=== PATIENT | male | born 1955 | race Caucasian/White ===

== ENCOUNTER 2018-04-30 15:08 | Inpatient (IN) | payer OTHER, MEDICAID ==
[~2018-04-30] VITALS: Ht 167.6 cm; Wt 70.3 kg
[2018-04-30 15:16] VITALS: BP 135/68
--- NOTE | 2018-04-30 15:30 | NUR ---
PATIENT BIBA TO BED 3.
--- NOTE | 2018-04-30 15:30 | NUR ---
PT. BIB ALS FROM [facility] DUE TO FACILITY STATING " ALOC AND HIGH BLOOD SUGAR". PT. ARRIVED RR EVEN AND UNLABORED. AWAKE AND ALERT , MALAWIAN SPEAKING AND ABLE TO SPEAK IN FULL AND COMPLETE SENTENCES. SKIN WARM AND DRY TO TOUCH. DENIES N/V/D. DENIES FEELING DIZZY. PT IS COOPERATIVE AND CALM. 4/10 PAIN IN L SHOULDER DUE TO " I FELL ABOUT 2 DAYS AGO AND THATS WHY IT HURTS". DENIES HITTING HEAD. PT ARRIVED WITH IV TO R HAND ESTABLISHED EN ROUTE. ER MD NOTIFIED. SAFETY PRECAUTIONS IMPLEMENTED.WILL CONTINUE TO MONITOR.
[2018-04-30] MEDS ORDERED: SEVE800T6 PO (15:47)
[2018-04-30] MEDS ORDERED: CARV12.5 PO (15:47)
[2018-04-30] MEDS ORDERED: VITD1000 PO (15:47)
[2018-04-30] MEDS ORDERED: GLU1I IM (15:47)
[2018-04-30] MEDS ORDERED: SYN.1 PO (15:47)
[2018-04-30] MEDS ORDERED: PANT40EC PO (15:47)
[2018-04-30] MEDS ORDERED: SENN-72 PO (15:47)
[2018-04-30] MEDS ORDERED: MIRABULK PO (15:47)
[2018-04-30] MEDS ORDERED: PHO667 PO (15:47)
[2018-04-30] MEDS ORDERED: AMLO5TAB PO (15:47)
[2018-04-30] MEDS ORDERED: SLIDE SUBQ (15:47)
[2018-04-30] MEDS ORDERED: DEXT38GE PO (15:47)
[2018-04-30] MEDS ORDERED: INSU100S10 SC (15:47)
[2018-04-30] MEDS ORDERED: BISA5TAB79 PO (15:47)
[2018-04-30] MEDS ORDERED: ASPI81EC98 PO (15:47)
[2018-04-30] MEDS ORDERED: CLON0.1T15 PO (15:47)
[2018-04-30] MEDS ORDERED: DOCU-299 PO (15:47)
[2018-04-30] MEDS ORDERED: MECL-272 PO (15:47)
[2018-04-30] MEDS ORDERED: LON2.5 PO (15:47)
[2018-04-30] MEDS ORDERED: MIRT15TA PO (15:47)
[2018-04-30] MEDS ORDERED: ATOR40TA PO (15:47)
[2018-04-30] MEDS ORDERED: VITA1TAB44 PO (15:47)
[2018-04-30] MEDS ORDERED: KEP500 PO (15:47)
[2018-04-30] MEDS ORDERED: CYAN1TAB82 PO (15:47)
[2018-04-30] MEDS ORDERED: NACL 0.9% 500 ML IV SCH (16:08)
--- NOTE | 2018-04-30 16:15 | NUR ---
XRAY AT BEDSIDE AT THIS TIME.
--- NOTE | 2018-04-30 16:58 | NUR ---
PT. UNABLE TO PROVIDE URINE AT THIS TIME. ER MD DEL CID NOTIFIED.
[2018-04-30] MEDS ORDERED: INSULIN REGULAR, HUMAN 100 UNIT/ML VIAL IVP ONE (17:05)
[2018-04-30 17:34] LABS: BASOPHILS % (AUTO) 0.7 % (0.0-2.0); EOSINOPHILS # (AUTO) 0.3 K/uL (0-0.4); EOSINOPHILS % (AUTO) 5.7 % (0.0-4.0); HEMATOCRIT 23.8 % (36-52); HEMOGLOBIN 7.5 g/dL (12.0-18.0); LYMPHOCYTES % (AUTO) 22.3 % (20.5-51.1); MEAN CORPUSCULAR HEMOGLOBIN 29 pg (27-31); MEAN CORPUSCULAR HGB CONC 32 g/dL (33-37); MEAN CORPUSCULAR VOLUME 92.6 fL (80-94); MONOCYTES # (AUTO) 0.5 K/uL (0.8-1.0); NEUTROPHILS # (AUTO) 2.7 K/uL (1.8-7.7); NEUTROPHILS % (AUTO) 60.3 % (42.2-75.2); PLATELET COUNT (AUTO) 116 K/uL (140-450); RED BLOOD CELL COUNT(AUTO) 2.57 MIL/uL (4.20-6.10); RED CELL DISTRIBUTION WIDTH 16.1 % (11.6-13.7); WHITE BLOOD COUNT (AUTO) 4.4 K/uL (4.8-10.8)
[2018-04-30 17:46] LABS: APPEARANCE,URINE CLEAR (CLEAR); BILIRUBIN,URINE NEGATIVE (NEGATIVE); BLOOD, URINE TRACE-I (NEGATIVE); COLOR,URINE YELLOW (YELLOW); LEUKOCYTE ESTERASE ,URINE NEGATIVE (NEGATIVE); NITRITE, URINE NEGATIVE (NEGATIVE); PH,URINE 8.5 (5.0-9.0); UGLUCOSE 3+ (NEGATIVE)
[2018-04-30 17:59] LABS: ACETONE, SERUM NEGATIVE (NEGATIVE)
--- NOTE | 2018-04-30 18:00 | NUR ---
PT. RESTING COMFORTABLY IN BED, RR EVEN AND UNLABORED. WILL CONTINUE TO MONITOR
[2018-04-30 18:17] LABS: CREATINE KINASE MB 0.7 ng/mL (0-3.6)
[2018-04-30 18:19] LABS: RBC,URINE 0-5 (RARE) /HPF (0-5); WBC,URINE 0-5 (RARE) /HPF (0-5)
[2018-04-30 18:22] LABS: ANION GAP 7.8 (8-16); CARBON DIOXIDE 31.9 mmol/L (21-32); POTASSIUM 4.7 mmol/L (3.5-5.1)
[2018-04-30 18:24] LABS: ALBUMIN 2.9 g/dL (3.4-5.0); TOTAL BILIRUBIN 0.4 mg/dL (0.0-1.0)
[2018-04-30 18:26] LABS: CREATININE 8.3 mg/dL (0.7-1.3)
[2018-04-30] MEDS ORDERED: ACETAMINOPHEN 325 MG TAB PO PRN (18:30)
[2018-04-30] MEDS ORDERED: ONDANSETRON 4 MG/2 ML VIAL IVP PRN (18:30)
[2018-04-30] MEDS ORDERED: HYDROcodone/APAP 7.5/325 MG 1 TAB PO PRN (18:30)
[2018-04-30] MEDS ORDERED: INSULIN LISPRO SLIDING SCALE 100 UNITS/ML VIAL SUBQ PRN (18:35)
[2018-04-30] MEDS ORDERED: DEXTROSE 50% 50 ML SYR IVP PRN (18:35)
[2018-04-30 18:44] LABS: MAGNESIUM 1.8 mg/dL (1.8-2.4)
[2018-04-30 18:45] LABS: AMYLASE 30 U/L (25-115); LIPASE 302 U/L (73-393)
[2018-04-30 18:54] LABS: BARBITURATE, URINE NEG. ng/ml (NEG <=200); BENZODIAZEPINE, URINE NEG. ng/mL (NEG <=200); CANNABINOID, URINE NEG. ng/mL (NEG <=50); COCAINE, URINE NEG. ng/mL (NEG <=300); OPIATE, URINE NEG. ng/mL (NEG <=2000); PHENCYCLIDINE SCREEN,URINE NEG. ng/mL (NEG <=25)
[2018-04-30 19:06] LABS: CHOL/HDL RATIO 4.8 (1-4.5); FREE T4 (FREE THYROXINE) 1.03 ng/dL (0.76-1.46); THYROID STIMULATING HORMONE 3.76 uIU/mL (0.34-3.74)
--- NOTE | 2018-04-30 19:11 | NUR ---
Patient will be admitted to care of DR. PITT . Admited to TELE . Will go to room 117. Belongings list completed. Report to DANIEL RAMOS .
[2018-04-30 19:15] LABS: URIC ACID 3.6 mg/dL (2.6-7.2)
--- NOTE | 2018-04-30 19:15 | NUR ---
RECEIVED FROM ER PER LILY AWAKE AND ALERT. FRENCH SPEAKING MALE PT. COMING FROM [facility] . C/C OF CHANGE OF LOC RT HYPERGLYCEMIA. DX. UNCONTROLLED DM. ESRD. AT PRESENT PT. IS VERY MUCH AWAKE AND ABLE TO FOLLOW COMMANDS. IVF SITE TO RIGHT HAND #22. WITH LEFT UPPER ARM HEMODIALYSIS ACCESS. SKIN INTACT. AFEBRILE. BED ALARM ON. CALL LIGHT WITH IN REACH.
[2018-04-30 19:51] VITALS: BP 144/71
--- NOTE | 2018-04-30 20:35 | NUR ---
GAS PUMPING STATION SUPERVISOR SHARLENE # [id number] / OCTAVIANO INTERPRETED PT.S HISTORY IN UPPER SORBIAN . RESIDENT MD PRESENT DURING ASSESSMENT OF PT.
[2018-04-30] MEDS ORDERED: MECLIZINE 25 MG TAB PO PRN (20:55)
[2018-04-30] MEDS ORDERED: cloNIDine 0.1 MG TAB PO PRN (20:55)
[2018-04-30] MEDS ORDERED: BISACODYL 5 MG TABEC PO PRN (20:55)
[2018-04-30] MEDS ORDERED: SENNA 8.6 MG TAB PO PRN (20:55)
[2018-04-30] MEDS: BLOOD GLUCOSE MONITORING 1 DEV DEV FS SCH (21:03)
[2018-04-30] MEDS: DOCUSATE SODIUM 100 MG GELCAP PO SCH (21:06)
--- NOTE | 2018-04-30 21:12 | NUR ---
PT. NOTED ABLE TO UNDERSTAND A LITTLE BIT IN [place]. STATES THAT HE IS HUNGRY. PROVIDED WITH SANDWICH RT BLOOD SUGAR WNL. 123 MG/DL PER FINGERSTICK. RESIDENT MD AWARE. SIDERAILS OF BED PADDED RT SEIZURE PRECAUTION. CALL LIGHT EXPLAINED AND WITH IN REACH.
--- NOTE | 2018-04-30 21:15 | NUR ---
PT. AT THIS TIME COMPLAINED THAT HE HAS PAIN 4/10 TO LEFT SHOULDER FROM STATUS POST FALL FROM OUTSIDE. REQUESTING FOR MEDICATION FOR PAIN. WILL MEDICATE REQUESTED.
[2018-04-30] MEDS: ATORVASTATIN 20 MG TAB PO SCH (23:02)
[2018-04-30] MEDS: amLODIPine 5 MG TAB PO SCH (23:02)
[2018-04-30] MEDS: MIRTAZAPINE 15 MG TAB PO SCH (23:02)
[2018-04-30] MEDS: levETIRAcetam 500 MG TAB PO SCH (23:02)
[2018-04-30] MEDS: CARVEDILOL 12.5 MG TAB PO SCH (23:03)
[2018-05-01 00:23] VITALS: BP 116/53
--- NOTE | 2018-05-01 00:25 | NUR ---
SLEEPING BUT WAKES UP EASILY WHEN TOUCHED. NO SOB. DENIES PAIN AT THIS TIME. MEDICATED WITH NORCO EARLIER IN THE SHIFT FOR COMPLAINT OF LEFT SHOULDER PAIN FROM S/P FALL IN ANOTHER FACILITY. VERBALIZES WELL . ANSWERS QUESTIONS IN ITALIAN. TELEMETRY MONITORING.
--- NOTE | 2018-05-01 01:43 | NUR ---
PT. WOKE UP AND ASKED FOR URINAL. PROVIDED WITH ONE. ABLE TO USE URINAL. ABLE TO USE CALL LIGHT FOR HELP. VERBALIZES WELL.
--- NOTE | 2018-05-01 04:10 | NUR ---
PT. BEEN SLEEPING WELL. NO COMPLAINTS DONE. TELEMETRY MONITORING. CALL LIGHT WITH IN REACH.
[2018-05-01 05:17] VITALS: BP 104/52
[2018-05-01] MEDS: BLOOD GLUCOSE MONITORING 1 DEV DEV FS SCH ×4 (05:32→21:00)
[2018-05-01] MEDS: PANTOPRAZOLE 40 MG TABEC PO SCH (05:36)
[2018-05-01] MEDS: LEVOTHYROXINE 0.1 MG TAB PO SCH (05:36)
[2018-05-01] MEDS: INSULIN LISPRO SLIDING SCALE 100 UNITS/ML VIAL SUBQ PRN ×2 (05:42→21:03)
[2018-05-01] MEDS: INSULIN NPH HUMAN ISOPHANE 100 UNIT/ML VIAL SUBQ SCH (05:42)
--- NOTE | 2018-05-01 05:56 | NUR ---
BLOOD SUGAR CHECK PER FINGERSTICK 238 MG/DL. INSULIN COVERAGE ORDERED ADMINISTERED. PT. ASKING FOR FOOD AGAIN. STATING VERY HUNGRY , PROVIDED WITH 1/2 OF SANDWICH AND A 120 ML OF MILK. EDUCATED RE: DIET , HYPERGLYCEMIA AND HYPOGLYCEMIA EPISODES, CAUSE AND NEEDS . "OK" REJI "I AM HUNGRY, MUCHO HAMBRE" PER PT.
--- NOTE | 2018-05-01 07:25 | NUR ---
PATIENT AWAKE, ALERT. RESPIRATION EVEN, UNLABOR ON ROOM AIR. SKIN DRY AND WARM. IV PATENT AND INTACT. DENIED PAIN AT THIS TIME. AV SHUNT ON LEFT ARM WITH THRILL AND BRUIT PRESENT. PLAN OF CARE WAS DISCUSSED WITH PATIENT. BED AT LOW POSITION, SIDE RAILS UP. CALL LIGHT WITHIN REACH.
[2018-05-01 07:49] LABS: MAGNESIUM 1.7 mg/dL (1.8-2.4); PHOSPHORUS 4.6 mg/dL (2.5-4.9)
[2018-05-01 07:49] LABS: BASOPHILS # (AUTO) 0.1 K/uL (0.00-0.22); BASOPHILS % (AUTO) 0.9 % (0.0-2.0); EOSINOPHILS # (AUTO) 0.5 K/uL (0-0.4); EOSINOPHILS % (AUTO) 7.7 % (0.0-4.0); HEMATOCRIT 23.1 % (36-52); HEMOGLOBIN 7.4 g/dL (12.0-18.0); LYMPHOCYTES # (AUTO) 1.4 K/uL (2.0-11.5); LYMPHOCYTES % (AUTO) 21.7 % (20.5-51.1); MEAN CORPUSCULAR HEMOGLOBIN 30 pg (27-31); MEAN CORPUSCULAR HGB CONC 32 g/dL (33-37); MEAN CORPUSCULAR VOLUME 92.5 fL (80-94); MONOCYTES # (AUTO) 0.4 K/uL (0.8-1.0); MONOCYTES % (AUTO) 6.5 % (1.7-9.3); NEUTROPHILS % (AUTO) 63.2 % (42.2-75.2); PLATELET COUNT (AUTO) 130 K/uL (140-450); RED CELL DISTRIBUTION WIDTH 15.7 % (11.6-13.7); WHITE BLOOD COUNT (AUTO) 6.4 K/uL (4.8-10.8)
[2018-05-01 07:55] LABS: ANION GAP 11.4 (8-16); POTASSIUM 4.4 mmol/L (3.5-5.1)
[2018-05-01 07:56] LABS: CREATININE 9.3 mg/dL (0.7-1.3)
[2018-05-01 08:00] VITALS: BP 109/57
[2018-05-01] MEDS: VIT-B COMP/VIT-C/FOLIC ACID 1 TAB PO SCH (08:10)
[2018-05-01] MEDS: POLYETHYLENE GLYCOL 17 GM/PKT PO SCH (08:10)
[2018-05-01] MEDS: CYANOCOBALAMIN 100 MCG TAB PO SCH (08:10)
[2018-05-01] MEDS: CHOLECALCIFEROL 1,000 IU TAB PO SCH (08:11)
[2018-05-01] MEDS: CARVEDILOL 12.5 MG TAB PO SCH ×2 (08:11→20:16)
[2018-05-01] MEDS: levETIRAcetam 500 MG TAB PO SCH ×2 (08:11→20:16)
[2018-05-01] MEDS: SEVELAMER CARBONATE 800 MG TAB PO SCH ×3 (08:11→17:33)
[2018-05-01] MEDS: CALCIUM ACETATE 667 MG TAB PO SCH ×3 (08:12→17:33)
[2018-05-01] MEDS: DOCUSATE SODIUM 100 MG GELCAP PO SCH ×2 (08:12→20:16)
[2018-05-01] MEDS: ECOTRIN 81 MG TABEC PO SCH (08:12)
[2018-05-01] MEDS: MINOXIDIL 2.5 MG TAB PO SCH (08:12)
[2018-05-01] MEDS: amLODIPine 5 MG TAB PO SCH ×2 (08:12→20:16)
--- NOTE | 2018-05-01 08:13 | NUR ---
PATIENT HAS BEEN SCREENED AND CATEGORIZED MODERATE NUTRITION RISK. PATIENT WILL BE SEEN WITHIN 3-5 DAYS OF ADMISSION. 05/03/18 05/05/[address]
--- NOTE | 2018-05-01 08:30 | NUR ---
DTI WAS FOUND ON LEFT HEEL. PATIENT STATED HE HAS HAD IT FOR 6 MONTHS AND ALREADY SEEN DOCTOR. WOUND PICTURE WAS TAKEN. LEFT HEEL WAS PLACED OFF PRESSURE. WILL NOTIFY
--- NOTE | 2018-05-01 10:00 | NUR ---
PATIENT WAS SLEEPING COMFORTABLY. RESPIRATION EVEN, UNLABOR ON ROOM AIR. NO DISTRESS NOTED AT THIS TIME
--- NOTE | 2018-05-01 10:29 | NUR ---
John FERRELL WAS MADE AWARE OF PATIENT'S MAG 1.7. WILL MEDICATE PER ORDER
[2018-05-01] MEDS ORDERED: HYDRAGUARD CREAM TP PRN (10:30)
[2018-05-01] MEDS ORDERED: ALBUTEROL SULFATE/IPRATROPIU 3 ML SOL IH PRN (10:40)
[2018-05-01] MEDS ORDERED: MECLIZINE 25 MG TAB PO PRN (10:45)
[2018-05-01] MEDS ORDERED: SENNA 8.6 MG TAB PO PRN (10:45)
[2018-05-01] MEDS ORDERED: cloNIDine 0.1 MG TAB PO PRN (10:50)
--- NOTE | 2018-05-01 11:45 | NUR ---
PATIENT AWAKE, ALERT. RESPIRATION EVEN, UNLABOR ON ROOM AIR. NO DISTRESS NOTED AT THIS TIME. VS IS STABLE. DRESSING WAS APPLIED ON WOUND. CALL LIGHT WITHIN REACH
[2018-05-01 12:00] VITALS: BP 119/54
[2018-05-01] MEDS ORDERED: MAG SULF 2000 MG/WATER PREMIX 50 ML IV SCH (12:00)
[2018-05-01] MEDS: HYDRAGUARD CREAM TP SCH (12:05)
--- NOTE | 2018-05-01 13:00 | NUR ---
HEMODIALYSIS WAS OBTAINED AT BEDSIDE. PATIENT VERBALIZED UNDERSTANDING.
--- NOTE | 2018-05-01 14:30 | NUR ---
PATIENT WAS SLEEPING COMFORTABLY. RESPIRATION EVEN, UNLABOR ON ROOM AIR. NO DISTRESS NOTED AT THIS TIME Addendum: 05/01/18 at 1625 by Keisha Hubbard RN BACK WOUND PICTURE WAS TAKEN. WOUND DRESSING WAS APPLIED.
--- NOTE | 2018-05-01 14:58 | NUR ---
WOUND CARE EVALUATION NOTE: REASON FOR EVALUATION: LEFT SCAPULAR AND LEFT HEEL WOUND SKIN ASSESSMENT DONE WITH THIS 63 Y/O MALE PT ADMITTED FROM [facility] TO [facility] WITH INITIAL DX OF HIGH BLOOD GLUCOSE. PAST MEDICAL HX INCLUDES HTN, DM AND ESRD WITH HEMODIALYSIS. PT. STATES S/P FALL 3 DAYS AGO AT SNF. ALL ABOVE INFORMATION OBTAINED FROM ADMISSION H&P. AND PT. PT IS AAX3. LABS ARE WBC 6.4, H/H 7.4/23.1, GLUCOSE 211 AND ALBUMIN 2.9. PT IS AWAKE. PT. REFUSED TO BE CHECKED ON PERINEUM AREA INCLUDING BUTTOCKS AND SACRAL AREAS. SKIN IS WARM AND DRY, BLE NO HAIR GROWTH. BILATERAL DORSAL PEDAL PULSES PRESENT AND NORMAL. CAPILLARY REFILLED < 2 SEC. X 10 TOES. PLAN OF CARE DISCUSSED WITH PRIMARY RN. INTEGUMENTARY: -LEFT UPPER ARM AV SHUNT WITH DRESSING DCI -ABRASION/ FRICTION CLOSE WOUND TO LEFT SCAPULAR 4X10CM WOUND BE, LIGHT YELLOW, WITH JAMEE WOUND SKIN INTACT WITH SURROUNDING REDNESS AREA 6X11CM -RIGHT HEEL OLD HEALED SCAR -LEFT MEDIAL HEEL SUSPECTED DTI 2X2 CM, SKIN INTACT WITH LIGHT PURPLE IN COLOR RECOMMENDATIONS: --KEEP SKIN DRY AND CLEAN AT ALL TIMES -APPLY HYDRAGUARD TO LEFT SCAPULAR BID AND LEAVE IT OPEN TO AIR -APPLY SKIN PREP TO LEFT MEDIAL HEEL BID AND LEAVE IT OPEN TO AIR -APPLY HEEL RAISER TO LEFT HEEL AT ALL TIMES -OFFLOAD BILATERAL HEELS BY PLACING PILLOWS UNDER CALVES UNLESS OTHERWISE CONTRAINDICATED -PRESSURE REDISTRIBUTION SURFACE THERAPY -TURN AND REPOSITION Q2H, OFFLOAD LEFT SCAPULAR BY TURNING RIGHT AND LEFT -CONTINUE TO FOLLOW RD RECOMMENDATIONS ALL ABOVE RECOMMENDATIONS DISCUSSED WITH PRIMARY RN WILL FOLLOW UP PT Q7-10 DAYS. PLEASE CONTACT WOUND CARE NURSE FOR ANY QUESTION AND CHANGE OF WOUND CONDITION
--- NOTE | 2018-05-01 15:10 | NUR ---
CM NOTE RECEIVED CALL FROM SHELLY MENDIETA OF ADMITTING WHO STATED THAT REVIEWS SHOULD BE SENT TO [facility] [phone], SHAMIR ALVARENGA PH# [phone]
[2018-05-01 16:00] VITALS: BP 109/56
--- NOTE | 2018-05-01 16:15 | NUR ---
PATIENT WAS SLEEPING COMFORTABLY. RESPIRATION EVEN, UNLABOR ON ROOM AIR. DENIED PAIN, SOB AT THIS TIME. VS IS STABLE. NO DISTRESS NOTED. DIALYSIS IS AT BEDSIDE. CALL LIGHT WITHIN REACH.
[2018-05-01] MEDS: FERROUS SULFATE 325 MG TABEC PO SCH (17:33)
--- NOTE | 2018-05-01 18:15 | NUR ---
PATIENT AWAKE, ALERT. RESPIRATION EVEN, UNLABOR ON ROOM AIR. IV PATENT AND INTACT. NO DISTRESS NOTED AT THIS TIME. FAMILY AT BEDSIDE. CALL LIGHT WITHIN REACH
--- NOTE | 2018-05-01 19:21 | NUR ---
ENDORSEMENT GIVEN TO CERTIFIED CODER NURSE. PATIENT IS STABLE AT THIS TIME
--- NOTE | 2018-05-01 19:25 | NUR ---
RECEIVED PATIENT AWAKE RESTING ON BED. DISCUSSED PLAN OF CARE AND VERBALIZED UNDERSTANDING. FALL PRECAUTION APPLIED. CALL LIGHT WITHIN REACH.
[2018-05-01 20:00] VITALS: BP 106/50
[2018-05-01] MEDS ORDERED: EPOETIN ALFA 10,000 UNITS/ML VIAL IV SCH (20:00)
[2018-05-01] MEDS: MIRTAZAPINE 15 MG TAB PO SCH (20:16)
[2018-05-01] MEDS: ATORVASTATIN 20 MG TAB PO SCH (20:16)
[2018-05-01] MEDS ORDERED: EPOETIN ALFA 10,000 UNITS/ML VIAL SUBQ SCH (21:00)
--- NOTE | 2018-05-01 21:00 | NUR ---
SCHEDULE MEDICATION GIVEN TOLERATED WELL. BS TAKEN AND RECORDED SLIDING SCALE GIVEN PER PROTOCOL. REPOSITIONED PATIENT IN COMFORTABLE POSITION. NO S/S OF DISTRESS NOTED AT THIS TIME. WILL CONTINUE TO MONITOR.
[2018-05-02] VITALS: BP 112/53
--- NOTE | 2018-05-02 00:05 | NUR ---
V/S TAKEN AND RECORDED. PATIENT PLACE IN COMFORTABLE POSITION. NO S/S OF DISTRESS NOTED. CALL LIGHT WITHIN REACH. WILL CONTINUE TO MONITOR.
[2018-05-02] MEDS: HYDRAGUARD CREAM TP SCH ×2 (01:08→12:34)
--- NOTE | 2018-05-02 02:30 | NUR ---
CHECKED PATIENT ASLEEP COMFORTABLY ON BED. NO SEIZURE NOTED AT THIS. FALL PRECAUTION IMPLEMENTED. CALL LIGHT WITHIN REACH. NO S/S OF DISTRESS NOTED AT THIS TIME. WILL CONTINUE TO MONITOR.
[2018-05-02 04:00] VITALS: BP 119/62
[2018-05-02] MEDS: INSULIN NPH HUMAN ISOPHANE 100 UNIT/ML VIAL SUBQ SCH (05:32)
[2018-05-02] MEDS: LEVOTHYROXINE 0.1 MG TAB PO SCH (05:46)
[2018-05-02] MEDS: PANTOPRAZOLE 40 MG TABEC PO SCH (05:46)
[2018-05-02] MEDS: INSULIN LISPRO SLIDING SCALE 100 UNITS/ML VIAL SUBQ PRN ×2 (06:35→12:37)
[2018-05-02 06:44] LABS: BASOPHILS # (AUTO) 0.1 K/uL (0.00-0.22); BASOPHILS % (AUTO) 0.8 % (0.0-2.0); EOSINOPHILS # (AUTO) 0.5 K/uL (0-0.4); EOSINOPHILS % (AUTO) 7.1 % (0.0-4.0); HEMATOCRIT 26.3 % (36-52); HEMOGLOBIN 8.4 g/dL (12.0-18.0); LYMPHOCYTES # (AUTO) 1.5 K/uL (2.0-11.5); LYMPHOCYTES % (AUTO) 23.6 % (20.5-51.1); MEAN CORPUSCULAR HEMOGLOBIN 29 pg (27-31); MEAN CORPUSCULAR HGB CONC 32 g/dL (33-37); MEAN CORPUSCULAR VOLUME 92.5 fL (80-94); MONOCYTES # (AUTO) 0.4 K/uL (0.8-1.0); MONOCYTES % (AUTO) 6.4 % (1.7-9.3); NEUTROPHILS % (AUTO) 62.1 % (42.2-75.2); PLATELET COUNT (AUTO) 146 K/uL (140-450); RED BLOOD CELL COUNT(AUTO) 2.85 MIL/uL (4.20-6.10); WHITE BLOOD COUNT (AUTO) 6.4 K/uL (4.8-10.8)
[2018-05-02 06:53] LABS: MAGNESIUM 1.8 mg/dL (1.8-2.4); PHOSPHORUS 4.3 mg/dL (2.5-4.9)
[2018-05-02] MEDS: BLOOD GLUCOSE MONITORING 1 DEV DEV FS SCH ×3 (06:55→16:53)
[2018-05-02 06:56] LABS: ANION GAP 7.8 (8-16); CARBON DIOXIDE 31.5 mmol/L (21-32); POTASSIUM 4.3 mmol/L (3.5-5.1)
--- NOTE | 2018-05-02 07:10 | NUR ---
GAVE REPORT TO AM SHIFT RN AT BEDSIDE FOR CONTINUITY OF CARE. PATIENT IN STABLE CONDITION.
--- NOTE | 2018-05-02 07:20 | NUR ---
PATIENT WAS SLEEPING COMFORTABLY. RESPIRATION EVEN, UNLABOR ON ROOM AIR. SKIN DRY AND WARM. IV PATENT AND INTACT. DENIED PAIN, SOB AT THIS TIME. PLAN OF CARE WAS DISCUSSED WITH PATIENT, BED AT LOW POSITION, SIDE RAILS UP. CALL LIGHT WITHIN REACH
[2018-05-02 07:41] LABS: CREATININE 6.7 mg/dL (0.7-1.3)
[2018-05-02 08:00] VITALS: BP 100/57
[2018-05-02] MEDS ORDERED: LANTUS SC (08:10)
[2018-05-02] MEDS ORDERED: SENN-72 PO (08:10)
[2018-05-02] MEDS ORDERED: MECL-272 PO (08:10)
[2018-05-02] MEDS ORDERED: CLON0.1T15 PO (08:10)
[2018-05-02] MEDS: SEVELAMER CARBONATE 800 MG TAB PO SCH ×2 (08:25→12:33)
[2018-05-02] MEDS: MINOXIDIL 2.5 MG TAB PO SCH (08:26)
[2018-05-02] MEDS: CHOLECALCIFEROL 1,000 IU TAB PO SCH (08:26)
[2018-05-02] MEDS: VIT-B COMP/VIT-C/FOLIC ACID 1 TAB PO SCH (08:26)
[2018-05-02] MEDS: POLYETHYLENE GLYCOL 17 GM/PKT PO SCH (08:26)
[2018-05-02] MEDS: CYANOCOBALAMIN 100 MCG TAB PO SCH (08:26)
[2018-05-02] MEDS: amLODIPine 5 MG TAB PO SCH (08:27)
[2018-05-02] MEDS: CALCIUM ACETATE 667 MG TAB PO SCH ×2 (08:27→12:33)
[2018-05-02] MEDS: levETIRAcetam 500 MG TAB PO SCH (08:27)
[2018-05-02] MEDS: ECOTRIN 81 MG TABEC PO SCH (08:27)
[2018-05-02] MEDS: CARVEDILOL 12.5 MG TAB PO SCH (08:27)
[2018-05-02] MEDS: DOCUSATE SODIUM 100 MG GELCAP PO SCH (08:27)
[2018-05-02] MEDS: FERROUS SULFATE 325 MG TABEC PO SCH (08:27)
--- NOTE | 2018-05-02 10:07 | NUR ---
PATIENT WAS SLEEPING COMFORTABLY. RESPIRATION EVEN, UNLABOR ON ROOM AIR. NO DISTRESS NOTED AT THIS TIME
[2018-05-02] MEDS ORDERED: INFLUENZA VIRUS VACCINE QUAD 0.5 ML SYR IMVAC SCH (10:35)
--- NOTE | 2018-05-02 11:00 | NUR ---
DISCHARGE INSTRUCTION AND PRESCRIPTION WERE GIVEN AND EXPLAINED TO THE PATIENT VIA PRICE ECONOMIST [id number]. PATIENT VERBALIZED UNDERSTANDING. HIGH SCHOOL CHEMISTRY TEACHER WAS REMOVED. CALL LIGHT WITHIN REACH
--- NOTE | 2018-05-02 11:30 | NUR ---
TALKED TO DR GUERRERO REGARDING PATIENT'S DISCHARGE WITH DIALYSIS. PATIENT CAN GET DIALYSIS ON TUESDAY AND TUESDAY THIS WEEK, AND GO BACK TO USUAL SCHEDULE AFTER.
--- NOTE | 2018-05-02 11:58 | NUR ---
CM NOTE [facility] ASSIGNED SHAMIR COLETTE PH# [phone] REQUESTED REVIEWS TO BE SENT TO THEIR E-FAX [phone]. CONCURRENT REVIEW AND DC SUMMARY FAXED TO [facility] [phone], SHAMIR ALVARENGA PH# [phone]. PER SAULO SANCHEZ, VINNY FROM [facility] STATED THAT PATIENT'S TRANSPORTATION [facility]OUGH [facility]. PER SHAMIR ALVARENGA OF [facility] PH# [phone], FOR [facility] AUTH# [id number]. PER TRISTEN OF [facility] PH# [phone], PATIENT WILL BE PICKED UP AT 1630 TIME TODAY. SAULO SANCHEZ AWARE.
[2018-05-02 12:00] VITALS: BP 121/65
--- NOTE | 2018-05-02 15:06 | NUR ---
FAY AT [facility] WAS MADE AWARE THAT PATIENT WILL NEED DIALYSIS ON TUESDAY AND TUESDAY THIS WEEK
[2018-05-02 15:19] LABS: FOLIC ACID 16.9 ng/mL (>3.0)
[2018-05-02 16:00] VITALS: BP 108/50
--- NOTE | 2018-05-02 16:00 | NUR ---
PATIENT WAS SLEEPING COMFORTABLY. RESPIRATION EVEN, UNLABOR ON ROOM AIR. DENIED PAIN AT THIS TIME. NO DISTRESS NOTED. IV WAS REMOVED, CATHETER INTACT, NO ACTIVE BLEEDING SEEN. CALL LIGHT WITHIN REACH
--- NOTE | 2018-05-02 16:59 | NUR ---
PATIENT WAS TRANSFERRED OUT BY EMT. REPORT WAS GIVEN AT BEDSIDE. ALL BELONGINGS WERE TAKEN WITH EMT. ID BAND WAS REMOVED. PATIENT IS STABLE AT THIS TIME
[2018-05-03] MEDS ORDERED: EPOETIN ALFA 4,000 UNITS/ML VIAL IV SCH (09:00)
== END 2018-05-02 17:00 | disposition home or self-care (01) | DRG 682 ==
LOC: MED 15:08 → MTU 18:29
PROVIDERS: ADMIT General Practice; ATTEND General Practice
PROC: 5A1D70Z Performance of Urinary Filtration, Intermittent, Less than 6 Hours Per Day (ICD-10-PCS; principal; 2018-05-01)
PROC: 3E0234Z Introduction of Serum, Toxoid and Vaccine into Muscle, Percutaneous Approach (ICD-10-PCS; 2018-05-02)
DX: N17.0 Acute kidney failure with tubular necrosis (principal); E11.00 Type 2 diabetes mellitus with hyperosmolarity without nonketotic hyperglycemic-hyperosmolar coma (NKHHC); R53.2 Functional quadriplegia; E44.0 Moderate protein-calorie malnutrition; J98.11 Atelectasis; N18.6 End stage renal disease; E11.65 Type 2 diabetes mellitus with hyperglycemia; I10 Essential (primary) hypertension; K21.9 Gastro-esophageal reflux disease without esophagitis; K59.09 Other constipation; D69.6 Thrombocytopenia, unspecified; S99.922A Unspecified injury of left foot, initial encounter; E11.51 Type 2 diabetes mellitus with diabetic peripheral angiopathy without gangrene; E11.649 Type 2 diabetes mellitus with hypoglycemia without coma; F32.9 Major depressive disorder, single episode, unspecified; D63.8 Anemia in other chronic diseases classified elsewhere; E78.5 Hyperlipidemia, unspecified; E03.9 Hypothyroidism, unspecified; G40.909 Epilepsy, unspecified, not intractable, without status epilepticus; X58.XXXA Exposure to other specified factors, initial encounter; Z68.25 Body mass index [BMI] 25.0-25.9, adult; Z99.2 Dependence on renal dialysis; Y93.89 Activity, other specified; Y92.89 Other specified places as the place of occurrence of the external cause; Y99.8 Other external cause status; Z23 Encounter for immunization; E83.42 Hypomagnesemia
CPT/HCPCS: 36415; 36600; 71045; 80048; 80053; 80305; 81001; 82009; 82150; 82550; 82553; 82607; 82728; 82746; 82803; 82948; 83036; 83540; 83605; 83690; 83735; 83874; 83880; 84100; 84134; 84439; 84443; 84484; 84550; 85025; 85045; 85610; 85730; 87040; 87081; 87086; 90658; 93005; 93925; 93970; 96374; 97530; 99285; J0885; J1815; J3475; Q0092

== ENCOUNTER 2018-06-12 11:40 | Inpatient (IN) | payer OTHER, MEDICAID ==
[~2018-06-12] VITALS: Ht 165.1 cm; Wt 72.6 kg
[2018-06-12 11:40] VITALS: BP 171/95
[~2018-06-12 11:40] MED LIST: AMLO5TAB PO; ASPI81EC98 PO; ATOR40TA PO; BISA5TAB79 PO; CARV12.5 PO; CLON0.1T15 PO; CYAN1TAB82 PO; DEXT38GE PO; DOCU-299 PO; GLU1I IM; INSU100S10 SC; KEP500 PO; LANTUS SC; LON2.5 PO; MECL-272 PO; MIRABULK PO; MIRT15TA PO; PANT40EC PO; PHO667 PO; SENN-72 PO; SEVE800T6 PO; SLIDE SUBQ; SYN.1 PO; VITA1TAB44 PO; VITD1000 PO
--- NOTE | 2018-06-12 11:43 | NUR ---
PT BIBA BLS TO BED 8
--- NOTE | 2018-06-12 12:00 | NUR ---
PT BIB EMS FROM [facility] WITH C/O GEN WEAKNESS AND NAUSEA; PER [facility] MISSED DIALYSIS X 3 DAYS BUT PT STATES LAST DIALYSIS WAS LAST TUESDAY; BS 111 PER EMS, CURRENT BS 111; LT UPPER ARM SHUNT HX; HTN, DM, STROKE, ESRD RX; NON COMPLIANT, HUMULIN, REG INSULIN, AMLOPIDINE, CLONIDINE, KEPPRA
[2018-06-12 12:55] LABS: BASOPHILS # (AUTO) 0.1 K/uL (0.00-0.22); EOSINOPHILS # (AUTO) 0.4 K/uL (0-0.4); EOSINOPHILS % (AUTO) 4.8 % (0.0-4.0); HEMATOCRIT 32.9 % (36-52); HEMOGLOBIN 10.2 g/dL (12.0-18.0); LYMPHOCYTES # (AUTO) 1.2 K/uL (2.0-11.5); MEAN CORPUSCULAR HEMOGLOBIN 30 pg (27-31); MEAN CORPUSCULAR HGB CONC 31 g/dL (33-37); MEAN CORPUSCULAR VOLUME 96.1 fL (80-94); MONOCYTES # (AUTO) 0.7 K/uL (0.8-1.0); MONOCYTES % (AUTO) 8.5 % (1.7-9.3); NEUTROPHILS # (AUTO) 5.6 K/uL (1.8-7.7); NEUTROPHILS % (AUTO) 70.7 % (42.2-75.2); PLATELET COUNT (AUTO) 164 K/uL (140-450); RED BLOOD CELL COUNT(AUTO) 3.42 MIL/uL (4.20-6.10); RED CELL DISTRIBUTION WIDTH 16.7 % (11.6-13.7); WHITE BLOOD COUNT (AUTO) 7.9 K/uL (4.8-10.8)
--- NOTE | 2018-06-12 12:59 | NUR ---
XRAY AT BEDSIDE
[2018-06-12 13:38] LABS: ANION GAP 20.5 (8-16); CARBON DIOXIDE 23.6 mmol/L (21-32); POTASSIUM 7.1 mmol/L (3.5-5.1)
[2018-06-12] MEDS ORDERED: INSULIN REGULAR, HUMAN 100 UNIT/ML VIAL IVP ONE (13:40)
[2018-06-12] MEDS ORDERED: SODIUM BICARBONATE 8.4% PFS 50 MEQ/50 ML SYR IVP ONE (13:40)
[2018-06-12] MEDS ORDERED: DEXTROSE 50% 50 ML SYR IVP ONE (13:40)
[2018-06-12] MEDS ORDERED: SODIUM POLYSTYRENE 15 GM/60 ML UDBTL PO ONE (13:40)
[2018-06-12] MEDS ORDERED: CALCIUM GLUCONATE 10% 1000 MG/10 ML VIAL IVP ONE (13:40)
[2018-06-12] MEDS ORDERED: ALBUTEROL SULFATE/IPRATROPIU 3 ML SOL IH ONE (13:40)
[2018-06-12 13:41] LABS: ALBUMIN 3.2 g/dL (3.4-5.0); TOTAL BILIRUBIN 0.5 mg/dL (0.0-1.0)
[2018-06-12] MEDS ORDERED: SODIUM POLYSTYRENE 15 GM/60 ML UDBTL ONE (13:57)
[2018-06-12 14:04] LABS: APPEARANCE,URINE CLEAR (CLEAR); BILIRUBIN,URINE NEGATIVE (NEGATIVE); BLOOD, URINE SMALL (NEGATIVE); COLOR,URINE YELLOW (YELLOW); LEUKOCYTE ESTERASE ,URINE NEGATIVE (NEGATIVE); NITRITE, URINE NEGATIVE (NEGATIVE); PH,URINE 7.5 (5.0-9.0); UGLUCOSE 2+ (NEGATIVE)
--- NOTE | 2018-06-12 14:05 | NUR ---
RT AT BEDSIDE
--- NOTE | 2018-06-12 14:10 | NUR ---
ADMITTING DX: GENRALIZED WEAKNESS AWAKE AND ALERT RESPONSIVE HHN THERAPY GIVEN OREDERED ENCOURAGED PATIENT FOR INTERMITTENT DEEP BREATHING
[2018-06-12 14:35] LABS: RBC,URINE 0-5 (RARE) /HPF (0-5); WBC,URINE NONE SEEN /HPF (0-5)
[2018-06-12] MEDS ORDERED: HYDROcodone/APAP 5/325 MG 1 TAB TAB PO PRN (15:00)
[2018-06-12] MEDS ORDERED: ZOLPIDEM 5 MG TAB PO PRN (15:00)
[2018-06-12] MEDS ORDERED: ONDANSETRON 4 MG/2 ML VIAL IM/IVP PRN (15:00)
[2018-06-12] MEDS ORDERED: LORazepam 2 MG/ML VIAL IM/IVP PRN (15:00)
[2018-06-12] MEDS ORDERED: ACETAMINOPHEN 325 MG TAB PO PRN (15:00)
[2018-06-12] MEDS ORDERED: DOCUSATE SODIUM 100 MG GELCAP PO PRN (15:00)
[2018-06-12 15:29] LABS: BARBITURATE, URINE NEG. ng/ml (NEG <=200); BENZODIAZEPINE, URINE NEG. ng/mL (NEG <=200); COCAINE, URINE NEG. ng/mL (NEG <=300); OPIATE, URINE NEG. ng/mL (NEG <=2000); PHENCYCLIDINE SCREEN,URINE NEG. ng/mL (NEG <=25)
[2018-06-12 15:39] LABS: FREE T4 (FREE THYROXINE) 0.95 ng/dL (0.76-1.46); MAGNESIUM 2.5 mg/dL (1.8-2.4); PHOSPHORUS 4.9 mg/dL (2.5-4.9); THYROID STIMULATING HORMONE 2.54 uIU/mL (0.34-3.74)
[2018-06-12 15:48] LABS: PROTHROMBIN TIME 10.3 secs (10.8-13.4)
--- NOTE | 2018-06-12 15:49 | NUR ---
PT TAKEN TO FLOOR BY DARIUSZ MCINTYRE
[2018-06-12 15:55] VITALS: BP 176/86
--- NOTE | 2018-06-12 15:55 | NUR ---
PATIENT ADMITTED TO THE UNIT FROM ER. PATIENT LETHARGIC BUT AROUSABLE. NO S/S OF DISTRESS NOTED. PT DENIES PAIN. PATIENT IS DIAPHORETIC. PATIENT IS AFEBRILE. SKIN IS INTACT. PATIENT HAS AN AV SHUNT ON THE LEFT ARM. BRUIT AND THRILL NOTED. PATIENT PLACED ON TELE MONITORING. BED LOWERED WITH CALL LIGHT WITHIN REACH. WILL CONTINUE TO MONITOR
--- NOTE | 2018-06-12 16:00 | NUR ---
Patient will be admitted to care of DR. PITT. Admited to TELE. Will go to room 114. Belongings list completed. Report to DANIEL MONK.
[2018-06-12 16:02] LABS: CANNABINOID, URINE NEG. ng/mL (NEG <=50)
[2018-06-12] MEDS ORDERED: LORazepam 0.5 MG TAB PO PRN (17:15)
[2018-06-12] MEDS ORDERED: INSULIN LISPRO SLIDING SCALE 100 UNITS/ML VIAL SUBQ PRN (17:15)
[2018-06-12] MEDS ORDERED: MECLIZINE 25 MG TAB PO PRN (17:15)
[2018-06-12] MEDS ORDERED: DEXTROSE 50% 50 ML SYR IVP PRN (17:15)
[2018-06-12] MEDS ORDERED: BISACODYL 5 MG PO PRN (17:35)
[2018-06-12] MEDS ORDERED: BISACODYL 5 MG TABEC PO PRN (17:40)
[2018-06-12 18:25] VITALS: BP 107/61
--- NOTE | 2018-06-12 18:35 | NUR ---
HEMODIALYSIS IN PROGRESS. PATIENT ASLEEP IN BED. NO S/S OF DISTRESS NOTED
[2018-06-12 19:35] LABS: ANION GAP 17.3 (8-16); CARBON DIOXIDE 25.8 mmol/L (21-32); POTASSIUM 5.1 mmol/L (3.5-5.1)
--- NOTE | 2018-06-12 19:38 | NUR ---
ENDORSED PATIENT TO RECREATION SPECIALIST RN BY THE BEDSIDE. PATIENT IS SLEEPING AND HD IS STILL IN PROCESS. PATIENT DOES NOT APPEAR TO BE IN ANY DISTRESS OR PAIN AT THIS TIME. BED AT THE LOWEST POSITION AND CALL LIGHT WITHIN REACH.
--- NOTE | 2018-06-12 19:40 | NUR ---
RECEIVED PT FROM REGINE SANCHEZ PT ESTONIAN SPEAKER AAOX2 ON HEMODIALYSIS AT THIS TIME HD ACCESS ONLEFT ARM ON TELEMETRY SB INITIAL ASSESSMENT DONE
[2018-06-12 19:57] LABS: CREATININE 12.5 mg/dL (0.7-1.3)
[2018-06-12 20:00] VITALS: BP 107/65
--- NOTE | 2018-06-12 20:30 | NUR ---
HEMODIALYSIS END AT 2030 AND 1.6 LITERS OUT
[2018-06-12] MEDS: CARVEDILOL 12.5 MG TAB PO SCH (21:00)
[2018-06-12] MEDS: NACL 0.9% 1,000 ML IV SCH (21:00)
--- NOTE | 2018-06-12 21:30 | NUR ---
BLOOD SUGAR TEST 122 PT EATING WELL HIS DINNE, OPT REPOSITIONED NOT DISTESS NOTED ON TELMETRY SB
[2018-06-12] MEDS: DOCUSATE SODIUM 100 MG GELCAP PO SCH (21:46)
[2018-06-12] MEDS: ATORVASTATIN 20 MG TAB PO SCH (21:46)
[2018-06-12] MEDS: levETIRAcetam 500 MG TAB PO SCH (21:47)
[2018-06-12] MEDS: MIRTAZAPINE 15 MG TAB PO SCH (21:47)
[2018-06-12] MEDS: amLODIPine 5 MG TAB PO SCH (21:50)
[2018-06-12] MEDS: BLOOD GLUCOSE MONITORING 1 DEV DEV FS SCH (21:58)
[2018-06-13 01:42] VITALS: BP 177/87
[2018-06-13] MEDS: cloNIDine 0.1 MG TAB PO PRN (01:46)
--- NOTE | 2018-06-13 02:41 | NUR ---
PT HAS BEEN MONITORING CLOSE FOR HIGH BP ON TELMETRY SR NOT DISTRESS NOTED AT THIS TIME
[2018-06-13 04:00] VITALS: BP 147/77
--- NOTE | 2018-06-13 06:30 | NUR ---
BLOOD SUGAR TEST 98 PT ON TELEMETRY REMAIN STABLE
[2018-06-13] MEDS: BLOOD GLUCOSE MONITORING 1 DEV DEV FS SCH ×4 (06:33→21:20)
[2018-06-13] MEDS: PANTOPRAZOLE 40 MG TABEC PO SCH (06:35)
[2018-06-13] MEDS: LEVOTHYROXINE 0.1 MG TAB PO SCH (06:36)
[2018-06-13 07:24] LABS: BASOPHILS % (AUTO) 0.8 % (0.0-2.0); EOSINOPHILS # (AUTO) 0.2 K/uL (0-0.4); EOSINOPHILS % (AUTO) 3.8 % (0.0-4.0); HEMATOCRIT 32.4 % (36-52); HEMOGLOBIN 10.4 g/dL (12.0-18.0); LYMPHOCYTES # (AUTO) 1.2 K/uL (2.0-11.5); LYMPHOCYTES % (AUTO) 20.8 % (20.5-51.1); MEAN CORPUSCULAR HEMOGLOBIN 30 pg (27-31); MEAN CORPUSCULAR HGB CONC 32 g/dL (33-37); MEAN CORPUSCULAR VOLUME 94.8 fL (80-94); MONOCYTES # (AUTO) 0.5 K/uL (0.8-1.0); MONOCYTES % (AUTO) 8.8 % (1.7-9.3); NEUTROPHILS # (AUTO) 3.7 K/uL (1.8-7.7); NEUTROPHILS % (AUTO) 65.8 % (42.2-75.2); PLATELET COUNT (AUTO) 153 K/uL (140-450); RED BLOOD CELL COUNT(AUTO) 3.42 MIL/uL (4.20-6.10); RED CELL DISTRIBUTION WIDTH 15.9 % (11.6-13.7); WHITE BLOOD COUNT (AUTO) 5.6 K/uL (4.8-10.8)
--- NOTE | 2018-06-13 07:45 | NUR ---
RECEIVED REPORT FORM SONIA. PATIENT WAS SLEEPING. RESPIRATIONS EVEN AND UNLABORED ON ROOM AIR. SKIN DRY AND WARM. IV PATENT AND INTACT. DENIED PAIN. PLAN OF CARE WAS DISCUSSED WITH PATIENT. BED AT LOW POSITION, SIDE RAILS UP. CALL LIGHT WITHIN REACH. ALL NEEDS MET AT THIS TIME.
[2018-06-13 07:56] LABS: ANION GAP 12.4 (8-16); CARBON DIOXIDE 30.8 mmol/L (21-32); POTASSIUM 4.2 mmol/L (3.5-5.1)
[2018-06-13 08:00] VITALS: BP 159/73
[2018-06-13 08:00] LABS: CREATININE 10.8 mg/dL (0.7-1.3)
[2018-06-13 08:09] LABS: MAGNESIUM 1.9 mg/dL (1.8-2.4); PHOSPHORUS 5.3 mg/dL (2.5-4.9)
[2018-06-13 08:28] LABS: T4 (THYROXINE) 5.3 ug/dL (4.5-12.0)
--- NOTE | 2018-06-13 08:41 | NUR ---
PATIENT HAS BEEN SCREENED AND CATEGORIZED HIGH NUTRITION RISK. PATIENT WILL BE SEEN WITHIN 1-2 DAYS OF ADMISSION. 06/13/18-06/14/[address]
[2018-06-13] MEDS: POLYETHYLENE GLYCOL 17 GM/PKT PO SCH (08:46)
[2018-06-13] MEDS: FERROUS SULFATE 325 MG TABEC PO SCH ×2 (08:47→16:41)
[2018-06-13] MEDS: MINOXIDIL 2.5 MG TAB PO SCH (08:47)
[2018-06-13] MEDS: SEVELAMER CARBONATE 800 MG TAB PO SCH ×3 (08:47→16:41)
[2018-06-13] MEDS: amLODIPine 5 MG TAB PO SCH ×2 (08:47→21:22)
[2018-06-13] MEDS: CARVEDILOL 12.5 MG TAB PO SCH ×2 (08:47→21:22)
[2018-06-13] MEDS: levETIRAcetam 500 MG TAB PO SCH ×2 (08:48→21:22)
[2018-06-13] MEDS: DOCUSATE SODIUM 100 MG GELCAP PO SCH ×2 (08:48→21:21)
[2018-06-13] MEDS: CALCIUM ACETATE 667 MG TAB PO SCH ×3 (08:48→16:41)
[2018-06-13] MEDS: ASPIRIN 81 MG TAB.CHEW PO SCH (08:48)
[2018-06-13] MEDS: CHOLECALCIFEROL 1,000 IU TAB PO SCH (08:49)
[2018-06-13] MEDS: INSULIN NPH HUMAN ISOPHANE 100 UNIT/ML VIAL SUBQ SCH (08:52)
--- NOTE | 2018-06-13 08:56 | NUR ---
ADMINISTERED SCHEDULED MEDS TO PT. TOLERATED WELL. ALL NEEDS MET AT THIS TIME. WILL CONTINUE TO ROUND FREQUENTLY. BED IN LOW POSITION, TWO SIDE RAILS UP, CALL LIGHT WITHIN REACH.
[2018-06-13] MEDS ORDERED: NON-FORMULARY ITEM (Aspirin (Aspir 81) 81 MG) PO SCH (09:00)
[2018-06-13] MEDS ORDERED: INSULIN NPH HUMAN ISOPHANE U SCH (09:00)
--- NOTE | 2018-06-13 09:33 | NUR ---
ADMINISTERED MORNING MEDS TO PT. TOLERATED WELL. ALL NEEDS MET AT THIS TIME. WILL CONTINUE TO ROUND FREQUENTLY. BED IN LOW POSITION, TWO SIDE RAILS UP, CALL LIGHT WITHIN REACH.
--- NOTE | 2018-06-13 11:05 | NUR ---
PT SLEEPING CALMLY IN BED. ALL NEEDS MET AT THIS TIME. WILL CONTINUE TO ROUND FREQUENTLY. BED IN LOW POSITION, TWO SIDERAILS UP, CALL LIGHT WITHIN REACH.
[2018-06-13 12:00] VITALS: BP 124/61
--- NOTE | 2018-06-13 12:29 | NUR ---
SPOKE WITH SHAMIR BHATT, PHONE [phone]. SHE SAID TO CALL HER WHEN PATIENT IS DISCHARGED.
--- NOTE | 2018-06-13 12:52 | NUR ---
ADMINISTERED PT. SCHEDULED MEDICATIONS. PT. TOLERATED WELL. PT DENIES PAIN AT THIS TIME. ALL NEEDS MET. CALL LIGHT WITHIN REACH, BED IN LOW POSITION, TWO SIDE RAILS UP.
--- NOTE | 2018-06-13 14:02 | NUR ---
06/13/18 RD INITIAL ASSESSMENT COMPLETED PLEASE REFER TO NUTRITION ASSESSMENT UNDER CARE ACTIVITY FOR ESTIMATED NUTRITIONAL NEEDS. 1. CONTINUE CCHO 60 GM DIET TOLERATED 2. DIETITIAN RECOMMENDS RENAL CCHO 60 GM DIET 3. DIETITIAN PROVIDED DIABETES AND RENAL NUTRITIONAL EDUCATION 4. RD TO FOLLOW-UP 3-5 DAYS, MODERATE RISK AILIN HOFF RD
--- NOTE | 2018-06-13 14:45 | NUR ---
PT RESTING CALMLY IN BED WATCHING TV. ALL NEEDS MET AT THIS TIME. WILL CONTINUE TO ROUND FREQUENTLY. CALL LIGHT WITHIN REACH.
[2018-06-13] MEDS: NACL 0.9% 1,000 ML IV SCH (15:35)
[2018-06-13 16:00] VITALS: BP 152/71
--- NOTE | 2018-06-13 16:35 | NUR ---
URINE RANDOM(VOID) SPECIMEN COLLECTED AT 1620. SPECIMEN TAKEN TO LAB AT 1635.
--- NOTE | 2018-06-13 16:47 | NUR ---
ADMINISTERED SCHEDULED MEDICATIONS TO PATIENT. TOLERATED WELL. ALL NEEDS MET AT THIS TIME. BED IN LOW POSITION, CALL LIGHT WITHING REACH, AND TWO SIDE RAILS UP.
--- NOTE | 2018-06-13 19:22 | NUR ---
RECEIVED PT FROM DEVENDRA RN PT AMHARIC SPEAKER AAOX3 RESTING ON BED ON TELEMETRY SR AV SHUNT FOR DIALYSIS ON LEFT ARM AND IV ON RT FA INFUSING WELL PT REMAIN STABLE AT THIS TIME
--- NOTE | 2018-06-13 19:27 | NUR ---
ENDORSED PT. TO DISPOSAL MAN FOR CONTINUITY OF CARE. PATIENT IN STABLE CONDITION. ALL NEEDS MET AT THIS TIME.
[2018-06-13 20:00] VITALS: BP 145/73
--- NOTE | 2018-06-13 20:00 | NUR ---
LAB CALL TO REPORT PT IS POSITIVE FOR MRSA NARES AND DR LLAMAS WAS NOTIFY AND ORDER TO FOLLOW FOR TX
[2018-06-13] MEDS: MIRTAZAPINE 15 MG TAB PO SCH (21:23)
[2018-06-13] MEDS: ATORVASTATIN 20 MG TAB PO SCH (21:23)
--- NOTE | 2018-06-13 21:30 | NUR ---
BLOOD SUGAR TEST 148 NOT COVERAGE PT REMAIN STABLE SLEEPING A THIS TIME
[2018-06-14] VITALS: BP 149/80
--- NOTE | 2018-06-14 00:48 | NUR ---
REOSITIONED Q2H ON TELEMETRY SR NOT DISTRESS NOTED
[2018-06-14 04:00] VITALS: BP 143/75
--- NOTE | 2018-06-14 04:00 | NUR ---
SPONGE BATH GIVEN , LINEN CHANGED, REPOSITIONED PT ON TELEMETRY SR, NOT DISTRESS NOTED
[2018-06-14] MEDS: LEVOTHYROXINE 0.1 MG TAB PO SCH (06:04)
[2018-06-14] MEDS: PANTOPRAZOLE 40 MG TABEC PO SCH (06:05)
[2018-06-14] MEDS: BLOOD GLUCOSE MONITORING 1 DEV DEV FS SCH ×4 (06:11→21:01)
[2018-06-14] MEDS ORDERED: MUPIROCIN 2% OINT 22 GM TUBE TP SCH (06:25)
[2018-06-14] MEDS ORDERED: CHLORHEXADINE GLUC 2% CLOTH TP SCH (06:25)
--- NOTE | 2018-06-14 06:34 | NUR ---
PT RESTING ON BED BLOOD SUGAR TEST 77 A JUICE GIVEN ON TELEMETRY SR
[2018-06-14 07:06] LABS: BASOPHILS % (AUTO) 0.8 % (0.0-2.0); EOSINOPHILS # (AUTO) 0.5 K/uL (0-0.4); EOSINOPHILS % (AUTO) 8.5 % (0.0-4.0); HEMATOCRIT 35.9 % (36-52); HEMOGLOBIN 11.3 g/dL (12.0-18.0); LYMPHOCYTES # (AUTO) 1.7 K/uL (2.0-11.5); LYMPHOCYTES % (AUTO) 29.5 % (20.5-51.1); MEAN CORPUSCULAR HEMOGLOBIN 30 pg (27-31); MEAN CORPUSCULAR HGB CONC 32 g/dL (33-37); MEAN CORPUSCULAR VOLUME 95.3 fL (80-94); MONOCYTES # (AUTO) 0.5 K/uL (0.8-1.0); MONOCYTES % (AUTO) 8.2 % (1.7-9.3); NEUTROPHILS # (AUTO) 3.1 K/uL (1.8-7.7); PLATELET COUNT (AUTO) 188 K/uL (140-450); RED BLOOD CELL COUNT(AUTO) 3.76 MIL/uL (4.20-6.10); WHITE BLOOD COUNT (AUTO) 5.8 K/uL (4.8-10.8)
[2018-06-14 07:13] LABS: ANION GAP 14.4 (8-16); CARBON DIOXIDE 29.3 mmol/L (21-32); POTASSIUM 4.7 mmol/L (3.5-5.1)
[2018-06-14 07:22] LABS: MAGNESIUM 2.1 mg/dL (1.8-2.4)
--- NOTE | 2018-06-14 07:35 | NUR ---
RECEIVED REPORT FORM SONIA. PATIENT WAS ASLEEP. RESPIRATIONS EVEN AND UNLABORED ON ROOM AIR. SKIN DRY AND WARM. IV PATENT AND INTACT. NO SIGNS OF PAIN. PT IN STABLE CONDITION. BED AT LOW POSITION, SIDE RAILS UP. CALL LIGHT WITHIN REACH. ALL NEEDS MET AT THIS TIME.
[2018-06-14 08:00] VITALS: BP 156/77
[2018-06-14] MEDS: INSULIN NPH HUMAN ISOPHANE 100 UNIT/ML VIAL SUBQ SCH (09:00)
[2018-06-14] MEDS: FERROUS SULFATE 325 MG TABEC PO SCH ×2 (09:34→17:18)
[2018-06-14] MEDS: SEVELAMER CARBONATE 800 MG TAB PO SCH ×3 (09:34→17:17)
[2018-06-14] MEDS: DOCUSATE SODIUM 100 MG GELCAP PO SCH ×2 (09:34→21:02)
[2018-06-14] MEDS: ASPIRIN 81 MG TAB.CHEW PO SCH (09:34)
[2018-06-14] MEDS: levETIRAcetam 500 MG TAB PO SCH ×2 (09:34→21:03)
[2018-06-14] MEDS: CALCIUM ACETATE 667 MG TAB PO SCH ×3 (09:35→17:18)
[2018-06-14] MEDS: CHOLECALCIFEROL 1,000 IU TAB PO SCH (09:35)
[2018-06-14] MEDS: MUPIROCIN 2% OINT 22 GM TUBE TP SCH (09:38)
[2018-06-14] MEDS: POLYETHYLENE GLYCOL 17 GM/PKT PO SCH (09:38)
--- NOTE | 2018-06-14 09:45 | NUR ---
SPOKE WITH REGARDING PTS' BP. PT BP IS 156/77 BUT THERE IS EXPECTED DIALYSIS TODAY. DR. ENCARNACION SAID TO GIVE MORNING BP MEDS BUT HOLD ANY FURTHER BP MEDS BEFORE DIALYSIS IS DONE.
[2018-06-14] MEDS: amLODIPine 5 MG TAB PO SCH ×2 (10:03→21:04)
[2018-06-14] MEDS: CARVEDILOL 12.5 MG TAB PO SCH ×2 (10:03→21:03)
[2018-06-14] MEDS: MINOXIDIL 2.5 MG TAB PO SCH (10:04)
[2018-06-14 12:00] VITALS: BP 162/75
--- NOTE | 2018-06-14 12:00 | NUR ---
RECEIVED A CALL FROM TIP OUT WORKER ROSIE BHATT FROM PT'S INSURANCE REQUESTING PROGRESS NOTES. KARLA [facility] REGULATORY SPECIALIST NOTIFIED AND STATED THAT SHE WILL TAKE CARE OF IT.
[2018-06-14] MEDS: CHLORHEXADINE GLUC 2% CLOTH TP SCH (12:04)
--- NOTE | 2018-06-14 12:49 | NUR ---
PT DOWNGRADED TO MED SURG PER DR'S REQUEST.
--- NOTE | 2018-06-14 13:00 | NUR ---
NOTIFIED DR. ENCARNACION REGARDING PT'S LATEST BP: 162/75 MMHG, HR: 62/MIN. DR. ENCARNACION STATED NOT TO GIVE THE PRN CLONIDINE PER PARAMETERS FOR PT HAS A PLANNED HD TODAY.
--- NOTE | 2018-06-14 14:15 | NUR ---
PATIENT STARTING DIALYSIS. PT IN STABLE CONDITION. ALL NEEDS MET AT THIS TIME. DENIES PAIN.
--- NOTE | 2018-06-14 17:15 | NUR ---
PT DIALYSIS COMPLETE. PT TOLERATED WELL. IN STABLE CONDITION AND DENIES PAIN. ALL NEEDS MET AT THIS TIME
[2018-06-14] MEDS: NACL 0.9% 1,000 ML IV SCH (17:30)
--- NOTE | 2018-06-14 19:26 | NUR ---
RECEIVED REPORT FROM DAY SHIFT NURSE, DEVENDRA, AT PT BEDSIDE. PT IN STABLE CONDITION. PT IS AAOX3. PT IS ON RA. RESPIRATIONS ARE EVEN AND UNLABORED. IV ACCESS IN R FA 20G WITH IVF RUNNING PER MD ORDERS. IV IS PATENT AND INTACT. PT SKIN IS INTACT. PT HAS NO C/O PAIN AT THIS TIME. BED IS LOCKED, LOW POSITION WITH SIDE RAILS UP X2. BOARD UPDATED. CALL LIGHT WITHIN REACH. WILL CONTINUE TO MONITOR PT.
--- NOTE | 2018-06-14 19:26 | NUR ---
ENDORSED PT. TO TUBE REBUILDER FOR CONTINUITY OF CARE. PATIENT IN STABLE CONDITION. ALL NEEDS MET AT THIS TIME.
[2018-06-14] MEDS: ATORVASTATIN 20 MG TAB PO SCH (21:03)
[2018-06-14] MEDS: MIRTAZAPINE 15 MG TAB PO SCH (21:03)
--- NOTE | 2018-06-14 21:04 | NUR ---
ADMINISTERED SCHEDULED MEDICATIONS. PT TOLERATED WELL. WILL CONTINUE TO MONITOR. Addendum: 06/14/18 at 2118 by Chanell Jiang RN BRITTANY CHECKED, 95. NO COVERAGE NEEDED PER MD ORDERS.
[2018-06-15] VITALS: BP 166/81
[2018-06-15] MEDS: cloNIDine 0.1 MG TAB PO PRN
--- NOTE | 2018-06-15 00:01 | NUR ---
CLONIDINE ADMINISTERED FOR BP 167/78. PT SHOWING NO S/SX OF DISTRESS. WILL CONTINUE TO MONITOR.
--- NOTE | 2018-06-15 01:30 | NUR ---
PT BP REASSESSED, 166/81. INFORMED DR LLAMAS, DOES NOT WANT TO GIVE MORE MEDICATION AT THIS TIME. WILL CONTINUE TO MONITOR.
--- NOTE | 2018-06-15 02:00 | NUR ---
PT BP REASSESSED 159/75. PT HAS NO S/SX OF DISTRESS. WILL CONTINUE TO MONITOR.
--- NOTE | 2018-06-15 03:33 | NUR ---
PT ASLEEP IN BED. NO SIGNS OR SYMPTOMS OF DISTRESS. WILL CONTINUE TO MONITOR.
--- NOTE | 2018-06-15 05:58 | NUR ---
BS CHECKED, 108. NO COVERAGE NEEDED PER MD ORDERS.
[2018-06-15 06:23] LABS: MAGNESIUM 1.7 mg/dL (1.8-2.4); PHOSPHORUS 4.6 mg/dL (2.5-4.9)
[2018-06-15 06:40] LABS: BASOPHILS % (AUTO) 0.9 % (0.0-2.0); EOSINOPHILS # (AUTO) 0.4 K/uL (0-0.4); EOSINOPHILS % (AUTO) 8.5 % (0.0-4.0); HEMATOCRIT 30.8 % (36-52); HEMOGLOBIN 9.8 g/dL (12.0-18.0); LYMPHOCYTES # (AUTO) 1.3 K/uL (2.0-11.5); LYMPHOCYTES % (AUTO) 25.7 % (20.5-51.1); MEAN CORPUSCULAR HEMOGLOBIN 30 pg (27-31); MEAN CORPUSCULAR HGB CONC 32 g/dL (33-37); MEAN CORPUSCULAR VOLUME 93.9 fL (80-94); MONOCYTES # (AUTO) 0.5 K/uL (0.8-1.0); NEUTROPHILS # (AUTO) 2.8 K/uL (1.8-7.7); NEUTROPHILS % (AUTO) 54.9 % (42.2-75.2); PLATELET COUNT (AUTO) 165 K/uL (140-450); RED BLOOD CELL COUNT(AUTO) 3.27 MIL/uL (4.20-6.10); RED CELL DISTRIBUTION WIDTH 15.3 % (11.6-13.7); WHITE BLOOD COUNT (AUTO) 5.1 K/uL (4.8-10.8)
[2018-06-15] MEDS: PANTOPRAZOLE 40 MG TABEC PO SCH (06:45)
[2018-06-15] MEDS: BLOOD GLUCOSE MONITORING 1 DEV DEV FS SCH (06:45)
[2018-06-15] MEDS: LEVOTHYROXINE 0.1 MG TAB PO SCH (06:45)
--- NOTE | 2018-06-15 06:46 | NUR ---
ADMINISTERED SCHEDULED MEDICATIONS. PT TOLERATED WELL. WILL CONTINUE TO MONITOR.
--- NOTE | 2018-06-15 07:10 | NUR ---
RECEIVED PATIENT AWAKE IN BED. PATIENT IS AWAKE AND ALERT. NO S/S OF DISTRESS. PATIENT ON ROOM AIR. BED LOWERED WITH CALL LIGHT WITHIN REACH. WILL CONTINUE TO MONITOR
--- NOTE | 2018-06-15 07:19 | NUR ---
ENDORSED PT TO DAY SHIFT NURSE FOR CONTINUITY OF CARE. PT IN STABLE CONDITION.
[2018-06-15 08:00] VITALS: BP 169/77
[2018-06-15] MEDS ORDERED: MAGNESIUM OXIDE 400 MG TAB PO SCH (08:00)
[2018-06-15] MEDS: MINOXIDIL 2.5 MG TAB PO SCH (09:11)
[2018-06-15] MEDS: SEVELAMER CARBONATE 800 MG TAB PO SCH (09:12)
[2018-06-15] MEDS: DOCUSATE SODIUM 100 MG GELCAP PO SCH (09:12)
[2018-06-15] MEDS: CALCIUM ACETATE 667 MG TAB PO SCH (09:12)
--- NOTE | 2018-06-15 09:12 | NUR ---
ADMINISTERED SCHEDULED MEDICATIONS. PATIENT TOLERATED WELL
[2018-06-15] MEDS: FERROUS SULFATE 325 MG TABEC PO SCH (09:13)
[2018-06-15] MEDS: ASPIRIN 81 MG TAB.CHEW PO SCH (09:14)
[2018-06-15] MEDS: levETIRAcetam 500 MG TAB PO SCH (09:14)
[2018-06-15] MEDS: CARVEDILOL 12.5 MG TAB PO SCH (09:15)
[2018-06-15] MEDS: amLODIPine 5 MG TAB PO SCH (09:16)
[2018-06-15] MEDS: POLYETHYLENE GLYCOL 17 GM/PKT PO SCH (09:16)
[2018-06-15] MEDS: CHOLECALCIFEROL 1,000 IU TAB PO SCH (09:17)
[2018-06-15] MEDS: MUPIROCIN 2% OINT 22 GM TUBE TP SCH (09:17)
[2018-06-15] MEDS: INSULIN NPH HUMAN ISOPHANE 100 UNIT/ML VIAL SUBQ SCH (09:26)
[2018-06-15] MEDS: CHLORHEXADINE GLUC 2% CLOTH TP SCH (09:26)
[2018-06-15 11:01] VITALS: BP 152/77
--- NOTE | 2018-06-15 11:40 | NUR ---
PATIENT DISCHARGED BACK TO [facility]. DISCHARGE INSTRUCTIONS GIVEN. PATIENT VERBALIZED UNDERSTANDING. IV LINE DISCONTINUED. PATIENT LEFT WITH ALL HIS BELONGINGS AND DISCHARGE PAPERS. PATIENT LEFT IN STABLE CONDITION
== END 2018-06-15 11:40 | disposition home or self-care (01) | DRG 682 ==
LOC: MED 11:40 → MTU 14:59
PROVIDERS: ADMIT General Practice; ATTEND General Practice
PROC: 5A1D70Z Performance of Urinary Filtration, Intermittent, Less than 6 Hours Per Day (ICD-10-PCS; principal; 2018-06-12)
PROC: 5A1D70Z Performance of Urinary Filtration, Intermittent, Less than 6 Hours Per Day (ICD-10-PCS; 2018-06-14)
DX: N17.0 Acute kidney failure with tubular necrosis (principal); G93.41 Metabolic encephalopathy; R53.2 Functional quadriplegia; D68.59 Other primary thrombophilia; E44.1 Mild protein-calorie malnutrition; I12.0 Hypertensive chronic kidney disease with stage 5 chronic kidney disease or end stage renal disease; N18.6 End stage renal disease; E87.5 Hyperkalemia; E11.22 Type 2 diabetes mellitus with diabetic chronic kidney disease; E11.40 Type 2 diabetes mellitus with diabetic neuropathy, unspecified; E11.69 Type 2 diabetes mellitus with other specified complication; E11.65 Type 2 diabetes mellitus with hyperglycemia; E83.41 Hypermagnesemia; H54.7 Unspecified visual loss; E78.5 Hyperlipidemia, unspecified; E03.9 Hypothyroidism, unspecified; G40.909 Epilepsy, unspecified, not intractable, without status epilepticus; K59.09 Other constipation; D64.9 Anemia, unspecified; K21.9 Gastro-esophageal reflux disease without esophagitis; F32.9 Major depressive disorder, single episode, unspecified; Z99.2 Dependence on renal dialysis; Z86.73 Personal history of transient ischemic attack (TIA), and cerebral infarction without residual deficits; Z91.15 Patient's noncompliance with renal dialysis; Z79.4 Long term (current) use of insulin; Z79.82 Long term (current) use of aspirin; Z79.899 Other long term (current) drug therapy; Z74.01 Bed confinement status
CPT/HCPCS: 36415; 71045; 80048; 80053; 80305; 81001; 82150; 82948; 83036; 83690; 83735; 83880; 84100; 84436; 84439; 84443; 84484; 85025; 85610; 85730; 87081; 93005; 94640; 96374; 96375; 97110; 97116; 97530; 99285; J0610; J1815; J7030; J7620; Q0092

== ENCOUNTER 2018-07-22 15:45 | Inpatient (IN) | payer OTHER, MEDICAID ==
[~2018-07-22] VITALS: Ht 172.7 cm; Wt 72.1 kg
[2018-07-22 15:52] VITALS: BP 165/88
[2018-07-22] MEDS ORDERED: ACETAMINOPHEN 325 MG TAB PO ONE (17:00)
[2018-07-22] MEDS ORDERED: ONDANSETRON 4 MG/2 ML VIAL IVP ONE (20:00)
[2018-07-22 20:28] LABS: BASOPHILS # (AUTO) 0.1 K/uL (0.00-0.22); BASOPHILS % (AUTO) 1.2 % (0.0-2.0); EOSINOPHILS # (AUTO) 0.4 K/uL (0-0.4); EOSINOPHILS % (AUTO) 6.1 % (0.0-4.0); HEMATOCRIT 39.6 % (36-52); HEMOGLOBIN 12.4 g/dL (12.0-18.0); LYMPHOCYTES % (AUTO) 14.4 % (20.5-51.1); MEAN CORPUSCULAR HEMOGLOBIN 29 pg (27-31); MEAN CORPUSCULAR HGB CONC 31 g/dL (33-37); MEAN CORPUSCULAR VOLUME 93.4 fL (80-94); MONOCYTES # (AUTO) 0.2 K/uL (0.8-1.0); MONOCYTES % (AUTO) 3.3 % (1.7-9.3); NEUTROPHILS # (AUTO) 5.1 K/uL (1.8-7.7); PLATELET COUNT (AUTO) 150 K/uL (140-450); RED BLOOD CELL COUNT(AUTO) 4.24 MIL/uL (4.20-6.10); RED CELL DISTRIBUTION WIDTH 17.4 % (11.6-13.7); WHITE BLOOD COUNT (AUTO) 6.9 K/uL (4.8-10.8)
[2018-07-22 20:43] LABS: ALBUMIN 3.6 g/dL (3.4-5.0); ANION GAP 23.3 (8-16); CARBON DIOXIDE 23.2 mmol/L (21-32); TOTAL BILIRUBIN 0.5 mg/dL (0.0-1.0)
[2018-07-22 20:51] LABS: CREATININE 15.8 mg/dL (0.7-1.3); POTASSIUM 7.5 mmol/L (3.5-5.1)
[2018-07-22] MEDS ORDERED: DEXTROSE 50% 50 ML SYR IVP ONE (21:00)
[2018-07-22] MEDS ORDERED: CALCIUM GLUCONATE 10% 1000 MG/10 ML VIAL IVP ONE (21:00)
[2018-07-22] MEDS ORDERED: SODIUM POLYSTYRENE 15 GM/60 ML UDBTL PO ONE (21:00)
[2018-07-22] MEDS ORDERED: INSULIN REGULAR, HUMAN 100 UNIT/ML VIAL IVP ONE (21:00)
[2018-07-22 21:53] LABS: CREATINE KINASE MB 1.8 ng/mL (0-3.6)
[2018-07-22] MEDS ORDERED: HYDROcodone/APAP 7.5/325 MG 1 TAB PO PRN (22:00)
[2018-07-22] MEDS ORDERED: DOCUSATE SODIUM 100 MG GELCAP PO PRN (22:00)
[2018-07-22] MEDS ORDERED: ACETAMINOPHEN 325 MG TAB PO PRN (22:00)
[2018-07-22] MEDS ORDERED: ONDANSETRON 4 MG/2 ML VIAL IM/IVP PRN (22:00)
[2018-07-22] MEDS ORDERED: SENNA 8.6 MG TAB PO PRN (22:20)
[2018-07-22] MEDS ORDERED: DILTIAZEM 25 MG/5 ML VIAL IVP ONE (22:35)
[2018-07-22] MEDS ORDERED: hydrALAZINE 20 MG/ML VIAL IVP PRN (22:45)
[2018-07-22 22:47] LABS: PROTHROMBIN TIME 10.2 secs (10.8-13.4)
[2018-07-22 22:48] LABS: CHOL/HDL RATIO 4.6 (1-4.5); MAGNESIUM 2.3 mg/dL (1.8-2.4); PHOSPHORUS 7.4 mg/dL (2.5-4.9); THYROID STIMULATING HORMONE 2.64 uIU/mL (0.34-3.74)
[2018-07-22] MEDS ORDERED: DEXTROSE 50% 50 ML SYR IVP PRN (22:55)
[2018-07-22] MEDS ORDERED: hydrALAZINE 20 MG/ML VIAL IVP SCH (23:00)
[2018-07-22] MEDS: NACL 0.9% 1,000 ML IV SCH (23:00)
[2018-07-23] VITALS (7 sets, daily range): BP systolic 114–183; BP diastolic 59–84
[2018-07-23] MEDS ORDERED: hydrALAZINE 20 MG/ML VIAL IVP PRN ×2 (00:40→01:05)
[2018-07-23] MEDS ORDERED: cloNIDine 0.1 MG TAB PO SCH (07:00)
[2018-07-23] MEDS: PANTOPRAZOLE 40 MG TABEC PO SCH (07:02)
[2018-07-23] MEDS: BLOOD GLUCOSE MONITORING 1 DEV DEV FS SCH ×4 (07:03→20:28)
[2018-07-23] MEDS: LEVOTHYROXINE 0.1 MG TAB PO SCH (07:03)
[2018-07-23 08:14] LABS: BASOPHILS # (AUTO) 0.1 K/uL (0.00-0.22); BASOPHILS % (AUTO) 0.9 % (0.0-2.0); EOSINOPHILS # (AUTO) 0.4 K/uL (0-0.4); EOSINOPHILS % (AUTO) 5.9 % (0.0-4.0); HEMATOCRIT 38.8 % (36-52); HEMOGLOBIN 12.1 g/dL (12.0-18.0); LYMPHOCYTES # (AUTO) 1.6 K/uL (2.0-11.5); LYMPHOCYTES % (AUTO) 24.3 % (20.5-51.1); MEAN CORPUSCULAR HEMOGLOBIN 29 pg (27-31); MEAN CORPUSCULAR HGB CONC 31 g/dL (33-37); MEAN CORPUSCULAR VOLUME 93.3 fL (80-94); MONOCYTES # (AUTO) 0.4 K/uL (0.8-1.0); MONOCYTES % (AUTO) 6.1 % (1.7-9.3); NEUTROPHILS # (AUTO) 4.2 K/uL (1.8-7.7); NEUTROPHILS % (AUTO) 62.8 % (42.2-75.2); PLATELET COUNT (AUTO) 146 K/uL (140-450); RED BLOOD CELL COUNT(AUTO) 4.16 MIL/uL (4.20-6.10); RED CELL DISTRIBUTION WIDTH 17.5 % (11.6-13.7); WHITE BLOOD COUNT (AUTO) 6.7 K/uL (4.8-10.8)
[2018-07-23] MEDS: CALCIUM ACETATE 667 MG TAB PO SCH ×3 (08:22→16:54)
[2018-07-23] MEDS: VIT-B COMP/VIT-C/FOLIC ACID 1 TAB PO SCH (08:22)
[2018-07-23] MEDS: CARVEDILOL 12.5 MG TAB PO SCH ×2 (08:22→20:58)
[2018-07-23] MEDS: levETIRAcetam 500 MG TAB PO SCH ×2 (08:22→20:55)
[2018-07-23] MEDS: MINOXIDIL 2.5 MG TAB PO SCH (08:23)
[2018-07-23] MEDS: DOCUSATE SODIUM 100 MG GELCAP PO SCH ×2 (08:23→20:54)
[2018-07-23] MEDS: SEVELAMER CARBONATE 800 MG TAB PO SCH ×3 (08:23→16:54)
[2018-07-23] MEDS: amLODIPine 5 MG TAB PO SCH (08:23)
[2018-07-23] MEDS: INSULIN LANTUS 100 UNITS/ML 10 ML VIAL SUBQ SCH (08:26)
[2018-07-23 09:48] LABS: MAGNESIUM 2.3 mg/dL (1.8-2.4); PHOSPHORUS 7.1 mg/dL (2.5-4.9)
[2018-07-23 10:16] LABS: CARBON DIOXIDE 22.7 mmol/L (21-32)
[2018-07-23 10:18] LABS: ANION GAP 24.6 (8-16); POTASSIUM 7.3 mmol/L (3.5-5.1)
[2018-07-23 10:19] LABS: CREATININE 16.3 mg/dL (0.7-1.3)
[2018-07-23] MEDS: INSULIN LISPRO SLIDING SCALE 100 UNITS/ML VIAL SUBQ PRN (12:28)
[2018-07-23] MEDS: cloNIDine 0.1 MG TAB PO SCH ×3 (13:36→21:00)
[2018-07-23 16:28] LABS: ANION GAP 14.7 (8-16); CARBON DIOXIDE 32.3 mmol/L (21-32)
[2018-07-23 16:41] LABS: CREATININE 8.3 mg/dL (0.7-1.3)
[2018-07-23] MEDS: MIRTAZAPINE 15 MG TAB PO SCH (20:55)
[2018-07-23] MEDS: ATORVASTATIN 20 MG TAB PO SCH (20:55)
[2018-07-23] MEDS: NACL 0.9% 1,000 ML IV SCH (21:58)
[2018-07-24] VITALS: BP 143/74
[2018-07-24 04:00] VITALS: BP 143/77
[2018-07-24] MEDS: BLOOD GLUCOSE MONITORING 1 DEV DEV FS SCH ×4 (06:11→20:37)
[2018-07-24] MEDS: PANTOPRAZOLE 40 MG TABEC PO SCH (06:11)
[2018-07-24] MEDS: LEVOTHYROXINE 0.1 MG TAB PO SCH (06:11)
[2018-07-24 07:05] LABS: BASOPHILS % (AUTO) 0.8 % (0.0-2.0); EOSINOPHILS # (AUTO) 0.3 K/uL (0-0.4); HEMATOCRIT 37.5 % (36-52); HEMOGLOBIN 11.8 g/dL (12.0-18.0); LYMPHOCYTES # (AUTO) 1.2 K/uL (2.0-11.5); LYMPHOCYTES % (AUTO) 18.7 % (20.5-51.1); MEAN CORPUSCULAR HEMOGLOBIN 29 pg (27-31); MEAN CORPUSCULAR HGB CONC 31 g/dL (33-37); MEAN CORPUSCULAR VOLUME 93.1 fL (80-94); MONOCYTES # (AUTO) 0.4 K/uL (0.8-1.0); MONOCYTES % (AUTO) 6.7 % (1.7-9.3); NEUTROPHILS # (AUTO) 4.3 K/uL (1.8-7.7); NEUTROPHILS % (AUTO) 68.8 % (42.2-75.2); PLATELET COUNT (AUTO) 123 K/uL (140-450); RED BLOOD CELL COUNT(AUTO) 4.03 MIL/uL (4.20-6.10); RED CELL DISTRIBUTION WIDTH 17.7 % (11.6-13.7); WHITE BLOOD COUNT (AUTO) 6.2 K/uL (4.8-10.8)
[2018-07-24 08:08] VITALS: BP 119/74
[2018-07-24 08:18] LABS: ANION GAP 13.8 (8-16); CARBON DIOXIDE 32.9 mmol/L (21-32); POTASSIUM 4.7 mmol/L (3.5-5.1)
[2018-07-24 08:20] LABS: MAGNESIUM 1.7 mg/dL (1.8-2.4); PHOSPHORUS 6.7 mg/dL (2.5-4.9)
[2018-07-24 08:21] LABS: CREATININE 10.1 mg/dL (0.7-1.3)
[2018-07-24] MEDS: CALCIUM ACETATE 667 MG TAB PO SCH ×3 (08:44→17:37)
[2018-07-24] MEDS: VIT-B COMP/VIT-C/FOLIC ACID 1 TAB PO SCH (08:44)
[2018-07-24] MEDS: levETIRAcetam 500 MG TAB PO SCH ×2 (08:44→20:38)
[2018-07-24] MEDS: DOCUSATE SODIUM 100 MG GELCAP PO SCH ×2 (08:44→20:38)
[2018-07-24] MEDS: MINOXIDIL 2.5 MG TAB PO SCH (08:45)
[2018-07-24] MEDS: CARVEDILOL 12.5 MG TAB PO SCH ×2 (08:45→20:38)
[2018-07-24] MEDS: cloNIDine 0.1 MG TAB PO SCH ×2 (08:45→20:39)
[2018-07-24] MEDS: amLODIPine 5 MG TAB PO SCH (08:45)
[2018-07-24] MEDS: SEVELAMER CARBONATE 800 MG TAB PO SCH ×3 (08:54→17:38)
[2018-07-24] MEDS: INSULIN LANTUS 100 UNITS/ML 10 ML VIAL SUBQ SCH (08:55)
[2018-07-24 09:13] LABS: T4 (THYROXINE) 5.4 ug/dL (4.5-12.0)
[2018-07-24 12:00] VITALS: BP 144/71
[2018-07-24] MEDS: INSULIN LISPRO SLIDING SCALE 100 UNITS/ML VIAL SUBQ PRN (12:28)
[2018-07-24] MEDS ORDERED: MAGNESIUM OXIDE 400 MG TAB PO SCH (13:25)
[2018-07-24 15:50] VITALS: BP 130/72
[2018-07-24] MEDS ORDERED: GABAPENTIN 100 MG CAP PO SCH ×2 (17:00→21:00)
[2018-07-24 20:00] VITALS: BP 152/79
[2018-07-24] MEDS: MIRTAZAPINE 15 MG TAB PO SCH (20:38)
[2018-07-24] MEDS: ATORVASTATIN 20 MG TAB PO SCH (20:38)
[2018-07-24] MEDS: NACL 0.9% 1,000 ML IV SCH (20:41)
[2018-07-25] VITALS: BP 169/77
[2018-07-25 04:00] VITALS: BP 166/89
[2018-07-25] MEDS: LEVOTHYROXINE 0.1 MG TAB PO SCH (05:40)
[2018-07-25] MEDS: PANTOPRAZOLE 40 MG TABEC PO SCH (05:40)
[2018-07-25] MEDS: BLOOD GLUCOSE MONITORING 1 DEV DEV FS SCH ×2 (06:24→12:31)
[2018-07-25 07:54] LABS: BASOPHILS # (AUTO) 0.1 K/uL (0.00-0.22); BASOPHILS % (AUTO) 1.4 % (0.0-2.0); EOSINOPHILS # (AUTO) 0.4 K/uL (0-0.4); EOSINOPHILS % (AUTO) 8.3 % (0.0-4.0); HEMATOCRIT 38.8 % (36-52); HEMOGLOBIN 12.4 g/dL (12.0-18.0); LYMPHOCYTES # (AUTO) 1.2 K/uL (2.0-11.5); LYMPHOCYTES % (AUTO) 22.9 % (20.5-51.1); MEAN CORPUSCULAR HEMOGLOBIN 30 pg (27-31); MEAN CORPUSCULAR HGB CONC 32 g/dL (33-37); MEAN CORPUSCULAR VOLUME 93.7 fL (80-94); MONOCYTES # (AUTO) 0.5 K/uL (0.8-1.0); MONOCYTES % (AUTO) 9.5 % (1.7-9.3); NEUTROPHILS % (AUTO) 57.9 % (42.2-75.2); PLATELET COUNT (AUTO) 129 K/uL (140-450); RED BLOOD CELL COUNT(AUTO) 4.14 MIL/uL (4.20-6.10); RED CELL DISTRIBUTION WIDTH 17.3 % (11.6-13.7); WHITE BLOOD COUNT (AUTO) 5.2 K/uL (4.8-10.8)
[2018-07-25 08:00] VITALS: BP 163/76
[2018-07-25 08:04] LABS: ANION GAP 16.7 (8-16); CARBON DIOXIDE 31.1 mmol/L (21-32); POTASSIUM 4.8 mmol/L (3.5-5.1)
[2018-07-25 08:23] LABS: CREATININE 12.1 mg/dL (0.7-1.3)
[2018-07-25] MEDS: levETIRAcetam 500 MG TAB PO SCH (08:49)
[2018-07-25] MEDS: CALCIUM ACETATE 667 MG TAB PO SCH ×2 (08:49→13:34)
[2018-07-25] MEDS: SEVELAMER CARBONATE 800 MG TAB PO SCH ×2 (08:49→13:34)
[2018-07-25] MEDS: DOCUSATE SODIUM 100 MG GELCAP PO SCH (08:50)
[2018-07-25] MEDS: VIT-B COMP/VIT-C/FOLIC ACID 1 TAB PO SCH (08:50)
[2018-07-25] MEDS: cloNIDine 0.1 MG TAB PO SCH (09:00)
[2018-07-25] MEDS: amLODIPine 5 MG TAB PO SCH (09:00)
[2018-07-25] MEDS ORDERED: GABAPENTIN 100 MG CAP PO SCH (09:00)
[2018-07-25] MEDS: CARVEDILOL 12.5 MG TAB PO SCH (09:00)
[2018-07-25] MEDS: MINOXIDIL 2.5 MG TAB PO SCH (09:00)
[2018-07-25] MEDS: INSULIN LANTUS 100 UNITS/ML 10 ML VIAL SUBQ SCH (09:43)
[2018-07-25] MEDS ORDERED: GABA-636 PO (10:29)
[2018-07-25] MEDS ORDERED: GLUC-805 FS (10:33)
[2018-07-25] MEDS ORDERED: FAMO-90 PO (10:33)
[2018-07-25 12:00] VITALS: BP 104/59
[2018-07-25] MEDS: INSULIN LISPRO SLIDING SCALE 100 UNITS/ML VIAL SUBQ PRN (13:35)
[2018-07-25 15:49] VITALS: BP 131/62
== END 2018-07-25 15:45 | disposition home or self-care (01) | DRG 682 ==
LOC: MED 15:45 → UNDOADMIN 19:12 → MIC 19:12 → MTU 22:01
PROVIDERS: ADMIT General Practice; ATTEND General Practice
PROC: 5A1D70Z Performance of Urinary Filtration, Intermittent, Less than 6 Hours Per Day (ICD-10-PCS; principal; 2018-07-23)
PROC: 5A1D70Z Performance of Urinary Filtration, Intermittent, Less than 6 Hours Per Day (ICD-10-PCS; 2018-07-25)
DX: N17.9 Acute kidney failure, unspecified (principal); R53.2 Functional quadriplegia; G93.41 Metabolic encephalopathy; I12.0 Hypertensive chronic kidney disease with stage 5 chronic kidney disease or end stage renal disease; E87.5 Hyperkalemia; N18.6 End stage renal disease; E11.65 Type 2 diabetes mellitus with hyperglycemia; S80.01XA Contusion of right knee, initial encounter; W05.0XXA Fall from non-moving wheelchair, initial encounter; E11.22 Type 2 diabetes mellitus with diabetic chronic kidney disease; E78.5 Hyperlipidemia, unspecified; E03.9 Hypothyroidism, unspecified; G40.909 Epilepsy, unspecified, not intractable, without status epilepticus; K59.09 Other constipation; F32.9 Major depressive disorder, single episode, unspecified; K21.9 Gastro-esophageal reflux disease without esophagitis; E11.40 Type 2 diabetes mellitus with diabetic neuropathy, unspecified; M94.0 Chondrocostal junction syndrome [Tietze]; E83.39 Other disorders of phosphorus metabolism; E83.42 Hypomagnesemia; D64.9 Anemia, unspecified; Z79.4 Long term (current) use of insulin; Z99.2 Dependence on renal dialysis; Z79.899 Other long term (current) drug therapy; Y93.89 Activity, other specified; Y92.89 Other specified places as the place of occurrence of the external cause; Y99.8 Other external cause status; Z79.84 Long term (current) use of oral hypoglycemic drugs; N18.9 Chronic kidney disease, unspecified
CPT/HCPCS: 36415; 70450; 71045; 73560; 80048; 80053; 82140; 82550; 82553; 82948; 83036; 83605; 83690; 83735; 83880; 84100; 84436; 84443; 84479; 84484; 85025; 85610; 85730; 87081; 93005; 96374; 96375; 97116; 99285; J0360; J0610; J1815; J2405; J7030; Q0092

== ENCOUNTER 2018-08-15 13:05 | Inpatient (IN) | payer OTHER, MEDICAID ==
[~2018-08-15] VITALS: Ht 170.2 cm; Wt 69.9 kg
[~2018-08-15 13:05] MED LIST changes: +FAMO-90 PO; +GABA-636 PO; +GLUC-805 FS; -PANT40EC PO
[2018-08-15 13:12] VITALS: BP 148/75
--- NOTE | 2018-08-15 13:45 | NUR ---
PATIENT BIB EMS TO ER BED 7.
--- NOTE | 2018-08-15 13:55 | NUR ---
PATIENT PRESENTS TO ED WITH BIB EMS FROM [facility] FOR GENERALIZED WEAKNESS . DENIES N/V/D; SKIN IS PINK/WARM/DRY; AAOX4 WITH EVEN AND STEADY GAIT; LUNGS CLEAR BL; HR EVEN AND REGULAR; PT DENIES ANY FEVER, CP, SOB, OR COUGH AT THIS TIME; PATIENT STATES PAIN OF 0/10 AT THIS TIME; VSS; PATIENT POSITIONED FOR COMFORT; HOB ELEVATED; BEDRAILS UP X2; BED DOWN. ER MD MADE AWARE OF PT STATUS.
[2018-08-15] MEDS ORDERED: NACL 0.9% 1,000 ML IV ONE (14:50)
[2018-08-15 15:28] LABS: BASOPHILS # (AUTO) 0.1 K/uL (0.00-0.22); BASOPHILS % (AUTO) 1.2 % (0.0-2.0); EOSINOPHILS # (AUTO) 0.7 K/uL (0-0.4); EOSINOPHILS % (AUTO) 15.1 % (0.0-4.0); HEMATOCRIT 35.5 % (36-52); HEMOGLOBIN 11.1 g/dL (12.0-18.0); LYMPHOCYTES # (AUTO) 1.7 K/uL (2.0-11.5); LYMPHOCYTES % (AUTO) 34.4 % (20.5-51.1); MEAN CORPUSCULAR HEMOGLOBIN 29 pg (27-31); MEAN CORPUSCULAR HGB CONC 31 g/dL (33-37); MEAN CORPUSCULAR VOLUME 90.8 fL (80-94); MONOCYTES # (AUTO) 0.4 K/uL (0.8-1.0); MONOCYTES % (AUTO) 8.2 % (1.7-9.3); NEUTROPHILS % (AUTO) 41.1 % (42.2-75.2); PLATELET COUNT (AUTO) 157 K/uL (140-450); RED BLOOD CELL COUNT(AUTO) 3.91 MIL/uL (4.20-6.10); RED CELL DISTRIBUTION WIDTH 16.1 % (11.6-13.7); WHITE BLOOD COUNT (AUTO) 4.9 K/uL (4.8-10.8)
[2018-08-15] MEDS ORDERED: SODIUM BICARBONATE 8.4% PFS 50 MEQ/50 ML SYR IVP ONE (16:10)
[2018-08-15] MEDS ORDERED: INSULIN REGULAR, HUMAN 100 UNIT/ML VIAL SUBQ ONE (16:10)
[2018-08-15] MEDS ORDERED: SODIUM POLYSTYRENE 15 GM/60 ML UDBTL PO ONE (16:10)
[2018-08-15] MEDS ORDERED: DEXTROSE 50% 50 ML SYR IVP ONE (16:10)
[2018-08-15 16:19] LABS: ALBUMIN 3.2 g/dL (3.4-5.0); CARBON DIOXIDE 29.7 mmol/L (21-32); TOTAL BILIRUBIN 0.3 mg/dL (0.0-1.0)
[2018-08-15 16:49] LABS: ANION GAP 15.3 (8-16)
[2018-08-15 16:50] LABS: CREATININE 12.2 mg/dL (0.7-1.3)
[2018-08-15] MEDS ORDERED: DOCUSATE SODIUM 100 MG GELCAP PO PRN (17:35)
[2018-08-15] MEDS ORDERED: ONDANSETRON 4 MG/2 ML VIAL IM/IVP PRN (17:35)
[2018-08-15] MEDS ORDERED: ACETAMINOPHEN 325 MG TAB PO PRN (17:35)
--- NOTE | 2018-08-15 18:00 | NUR ---
Patient will be admitted to care of DR PITT . Admited to [facility]. Will go to room 117. Belongings list completed. Report to DANIEL ALEGRE.
--- NOTE | 2018-08-15 18:05 | NUR ---
Pt admitted at this time from ER to room 117 via [facility]. Received report from ER nurse Marco A. Pt transferred from rorient to bed with standby assist. Pt aaox3, verbally responsive, c/o feeling weak, no c/o pain. Respirations even & nonlabored in room air. Left upper arm AV shunt intact with positive bruit & thrill. Right hand IV saline lock intact & asymptomatic. Medical hx obtained from pt & medical records. Pt oriented to room & unit. Able to return demonstrate teachings.
[2018-08-15] MEDS ORDERED: NACL 0.9% 1,000 ML IV SCH (18:17)
[2018-08-15 18:20] VITALS: BP 151/78
[2018-08-15] MEDS ORDERED: HYDROcodone/APAP 5/325 MG 1 TAB TAB PO PRN (18:20)
[2018-08-15] MEDS ORDERED: MORPHINE SULFATE 4 MG/ML SYR IVP PRN (18:20)
[2018-08-15] MEDS ORDERED: ZOLPIDEM 5 MG TAB PO PRN (18:20)
[2018-08-15] MEDS ORDERED: CALCIUM GLUCONATE 10% 1000 MG/10 ML VIAL IVP SCH (18:30)
[2018-08-15] MEDS ORDERED: INSULIN REGULAR, HUMAN 100 UNIT/ML VIAL SUBQ SCH (18:45)
[2018-08-15] MEDS ORDERED: ALBUTEROL 0.083% 2.5 MG/3 ML NEBU INH SCH (19:00)
[2018-08-15 19:30] LABS: ANION GAP 16.6 (8-16); CARBON DIOXIDE 26.5 mmol/L (21-32)
--- NOTE | 2018-08-15 19:30 | NUR ---
ASSUMED CARE OF PATIENT, AWAKE, ALERT AND ORIENTED. NO COMPLAINS. NO DISTRESS NOTED. VITAL SIGNS STABLE. CALL LIGHT WITHIN REACH. CARE BOARD UPDATED.
--- NOTE | 2018-08-15 19:30 | NUR ---
Report given to pm nurse Richard.
[2018-08-15 19:32] LABS: CREATININE 12.3 mg/dL (0.7-1.3); POTASSIUM 6.1 mmol/L (3.5-5.1)
[2018-08-15 19:35] LABS: PROTHROMBIN TIME 10.5 secs (10.8-13.4)
[2018-08-15 19:37] LABS: FREE T4 (FREE THYROXINE) 1.01 ng/dL (0.76-1.46)
[2018-08-15 19:42] LABS: CHOL/HDL RATIO 3.7 (1-4.5); MAGNESIUM 2.3 mg/dL (1.8-2.4); PHOSPHORUS 7.7 mg/dL (2.5-4.9); THYROID STIMULATING HORMONE 0.58 uIU/mL (0.34-3.74)
[2018-08-15 20:00] VITALS: BP 151/70
[2018-08-15] MEDS ORDERED: cloNIDine 0.1 MG TAB PO PRN (20:00)
--- NOTE | 2018-08-15 20:00 | NUR ---
PLAN OF CARE DISCUSSED WITH PATIENT, NEEDS REINFORCEMENT. CALL LIGHT WITHIN REACH. HS SNACK GIVEN. CARE BOARD UPDATED.
[2018-08-15] MEDS ORDERED: LANTUS SQ (20:24)
[2018-08-15] MEDS ORDERED: FAMO-90 PO (20:24)
[2018-08-15] MEDS ORDERED: MECLIZINE 25 MG TAB PO PRN (21:10)
[2018-08-15] MEDS: BLOOD GLUCOSE MONITORING 1 DEV DEV FS SCH (21:23)
[2018-08-15] MEDS: DOCUSATE SODIUM 100 MG GELCAP PO SCH (21:30)
[2018-08-15] MEDS: MIRTAZAPINE 15 MG TAB PO SCH (21:30)
[2018-08-15] MEDS: ATORVASTATIN 20 MG TAB PO SCH (21:31)
[2018-08-15] MEDS: levETIRAcetam 500 MG TAB PO SCH (21:31)
[2018-08-15] MEDS: GABAPENTIN 100 MG CAP PO SCH (21:31)
[2018-08-15] MEDS: CARVEDILOL 12.5 MG TAB PO SCH (21:31)
[2018-08-15] MEDS: amLODIPine 5 MG TAB PO SCH (21:31)
--- NOTE | 2018-08-15 22:30 | NUR ---
HD NURSE AT BEDSIDE TO PERFORM HD. CONSENT SIGNED. ORDERS RECEIVED. CALL LIGHT WITHIN REACH.
[2018-08-16 00:20] VITALS: BP 112/58
--- NOTE | 2018-08-16 01:10 | NUR ---
HD NOT COMPLETED, SUPPOSED TO BE FINISHED AT [phone], PATIENT REFUSED AND BEGINNING TO PULL OUT NEEDLE. EXPLAINED TO IMPORTANCE AND REINFORCED IMPORTANCE. STILL REFUSED TO CONTINUE. RESIDENT MD ON DUTY NOTIFIED.
--- NOTE | 2018-08-16 01:30 | NUR ---
REPORT RECEIVED FROM HD NURSE-2.2L OUTPUT.
[2018-08-16 02:37] LABS: ANION GAP 7.9 (8-16); CARBON DIOXIDE 31.6 mmol/L (21-32); POTASSIUM 4.5 mmol/L (3.5-5.1)
[2018-08-16 03:23] LABS: CREATININE 7.9 mg/dL (0.7-1.3)
[2018-08-16 04:39] VITALS: BP 138/64
--- NOTE | 2018-08-16 04:44 | NUR ---
ASLEEP, EASILY AROUSABLE. NO COMPLAINS. VITAL SIGNS STABLE. CALL LIGHT WITHIN REACH.
[2018-08-16] MEDS: BLOOD GLUCOSE MONITORING 1 DEV DEV FS SCH ×4 (05:53→21:02)
[2018-08-16] MEDS ORDERED: DEXTROSE 50% 50 ML SYR IVP PRN (06:05)
[2018-08-16] MEDS: FAMOTIDINE 20 MG TAB PO SCH (06:38)
[2018-08-16] MEDS: LEVOTHYROXINE 0.1 MG TAB PO SCH (06:38)
[2018-08-16] MEDS ORDERED: MORPHINE SULFATE 2 MG/ML SYR IVP PRN (07:21)
[2018-08-16] MEDS ORDERED: cloNIDine 0.1 MG TAB PO PRN (07:21)
[2018-08-16 07:28] LABS: BASOPHILS % (AUTO) 0.8 % (0.0-2.0); EOSINOPHILS # (AUTO) 0.5 K/uL (0-0.4); EOSINOPHILS % (AUTO) 10.8 % (0.0-4.0); HEMATOCRIT 36.6 % (36-52); HEMOGLOBIN 11.5 g/dL (12.0-18.0); LYMPHOCYTES # (AUTO) 1.2 K/uL (2.0-11.5); MEAN CORPUSCULAR HEMOGLOBIN 28 pg (27-31); MEAN CORPUSCULAR HGB CONC 32 g/dL (33-37); MEAN CORPUSCULAR VOLUME 90.2 fL (80-94); MONOCYTES # (AUTO) 0.4 K/uL (0.8-1.0); MONOCYTES % (AUTO) 8.4 % (1.7-9.3); NEUTROPHILS # (AUTO) 2.8 K/uL (1.8-7.7); PLATELET COUNT (AUTO) 142 K/uL (140-450); RED BLOOD CELL COUNT(AUTO) 4.06 MIL/uL (4.20-6.10); RED CELL DISTRIBUTION WIDTH 16.4 % (11.6-13.7); WHITE BLOOD COUNT (AUTO) 4.9 K/uL (4.8-10.8)
--- NOTE | 2018-08-16 07:35 | NUR ---
ENDORSED CARE AT BEDSIDE WITH MIRIAN RN, PATIENT IN STABLE CONDITION.
--- NOTE | 2018-08-16 07:36 | NUR ---
RECEIVED BEDSIDE REPORT FROM [employer] OPERATOR NURSE. PATIENT IS AWAKE, ALERT AND ORIENTEDX4. MALTESE SPEAKER. NO SIGNS OF DISTRESS ON RA. PATIENT AMBULATES W ASSIST. CC GEN WEAKNESS. FALL RISK PROTOCOL. NO YELLOW GOWNS AT THIS TIME. SKIN IS INTACT. VANESSA FISTULA. NO B/P OR VENIPUNCTURE ON L ARM SIGN POSTED. TELE MONITOR IN PLACE. IV ON R HAND 20G INFUSING NS AT 30. CLEAN, DRY AND INTACT. WILL CONTINUE TO MONITOR. BED IN LOW POSITION. CALL LIGHT WITHIN REACH. SEIZURE PRECAUTIONS PLACED AT THIS TIME
[2018-08-16 08:00] VITALS: BP 129/72
--- NOTE | 2018-08-16 08:35 | NUR ---
PATIENT HAS BEEN SCREENED AND CATEGORIZED MODERATE NUTRITION RISK. PATIENT WILL BE SEEN WITHIN 3-5 DAYS OF ADMISSION. 08/18/18AILIN HOFF RD
[2018-08-16] MEDS: SEVELAMER CARBONATE 800 MG TAB PO SCH ×3 (08:45→16:55)
[2018-08-16] MEDS: MINOXIDIL 2.5 MG TAB PO SCH (08:48)
[2018-08-16] MEDS: GABAPENTIN 100 MG CAP PO SCH ×2 (08:48→21:15)
[2018-08-16] MEDS: VIT-B COMP/VIT-C/FOLIC ACID 1 TAB PO SCH (08:49)
[2018-08-16] MEDS: DOCUSATE SODIUM 100 MG GELCAP PO SCH ×2 (08:49→21:13)
[2018-08-16] MEDS: levETIRAcetam 500 MG TAB PO SCH ×2 (08:49→21:15)
[2018-08-16] MEDS: CALCIUM ACETATE 667 MG TAB PO SCH ×3 (08:50→16:55)
[2018-08-16] MEDS: ASPIRIN 81 MG TAB.CHEW PO SCH (08:50)
[2018-08-16] MEDS: CARVEDILOL 12.5 MG TAB PO SCH ×2 (08:50→21:15)
[2018-08-16] MEDS: INSULIN LANTUS 100 UNITS/ML 10 ML VIAL SUBQ SCH (08:55)
[2018-08-16] MEDS ORDERED: CYANOCOBALAMIN PO SCH (09:00)
[2018-08-16] MEDS ORDERED: FOLIC ACID PO SCH (09:00)
[2018-08-16] MEDS ORDERED: NON-FORMULARY ITEM (Aspirin (Aspir 81) 81 MG) PO SCH (09:00)
[2018-08-16] MEDS: amLODIPine 5 MG TAB PO SCH ×2 (09:03→21:14)
--- NOTE | 2018-08-16 09:04 | NUR ---
ADMINISTERED MEDS. PATIENT TOLERATED WELL. WILL CONTINUE TO MONITOR
[2018-08-16 09:51] LABS: ANION GAP 8.6 (8-16); CARBON DIOXIDE 30.9 mmol/L (21-32); POTASSIUM 5.5 mmol/L (3.5-5.1)
[2018-08-16 09:55] LABS: PHOSPHORUS 5.9 mg/dL (2.5-4.9)
[2018-08-16 10:01] LABS: MAGNESIUM 1.9 mg/dL (1.8-2.4)
[2018-08-16 10:09] LABS: CREATININE 8.9 mg/dL (0.7-1.3)
--- NOTE | 2018-08-16 10:30 | NUR ---
PATIENT IS SLEEPING. WILL CONTINUE TO MONITOR. CALL LIGHT WITHIN REACH. BED IN LOW POSITION
[2018-08-16 12:00] VITALS: BP 160/89
--- NOTE | 2018-08-16 12:17 | NUR ---
PATIENT EATING LUNCH AT SIDE OF BED. NO SIGNS OF DISTRESS. WILL CONTINUE TO MONITOR THE PATIENT.
[2018-08-16] MEDS: INSULIN LISPRO SLIDING SCALE 100 UNITS/ML VIAL SUBQ PRN ×2 (13:11→21:17)
--- NOTE | 2018-08-16 13:18 | NUR ---
ADMINISTERED MEDS. PATIENT TOLERATED WELL. PATIENT SITTING IN RESTROOM. PATIENT WALKED W ASSISTANCE. TOLD PATIENT TO PULL CALL STRING WHEN DONE. PATIENT SAID OK
--- NOTE | 2018-08-16 14:30 | NUR ---
PATIENT SIGNED AMA FORMS. HE SAID HE HAS AN IMMIGRATION APPOINTMENT HE YANELI HOWARD. PATIENT SAID HIS FRIEND IS COMING TO PICK HIM UP. DR RATLIFF TO COME INTO ROOM AND SPEAK TO THE PATIENT ABOUT THE RISKS
--- NOTE | 2018-08-16 15:28 | NUR ---
CALLED PATIENTS CONTACT LIST, DENISHA. SHE SAID SHE IS NOT COMING AND IT MIGHT BE HIS OTHER FRIEND. PATIENT WAS ATTEMPTING TO LEAVE AND ALMOST FELL, SECURITY CAUGHT HIM. DR RATLIFF CONVINCED PATIENT TO STAY. HE IS BACK IN BED. NO IV ACCESS AT THIS TIME. IV REMOVED, TIP INTACT, BANDS WERE REMOVED. GETTING NEW ONE FROM ADMITTING.
--- NOTE | 2018-08-16 15:35 | NUR ---
RECEIVED A CALL FROM FRANK GONZALEZ FROM [facility].. I TOLD HER THAT THE REVIEW WAS BEING SENT AND THAT I WAS TOLD THAT THE PATIENT LEFT AMA. I GOT A CALL FROM DR. RATLIFF, THAT THE PATIENT WAS CONVINCED TO STAY AND HE IS STILL IN HOUSE. I CALLED FRANK FROM [facility], AND INFORMED HER THE PATIENT WAS STILL HERE. FAX FOR FRANK IS [phone].
--- NOTE | 2018-08-16 15:50 | NUR ---
ID BANDS PLACED BACK ON PATIENT. PATIENT IN BED IN NO DISTRESS
[2018-08-16 16:00] VITALS: BP 173/85
--- NOTE | 2018-08-16 16:57 | NUR ---
ADMINISTERED MEDS. PATIENT TOLERATED WELL. WILL CONTINUE TO MONITOR THE PATIENT
--- NOTE | 2018-08-16 17:54 | NUR ---
NEW IV ON R HAND 22G SL. CLEAN, DRY AND INTACT
[2018-08-16] MEDS ORDERED: hydrALAZINE 20 MG/ML VIAL IVP SCH (19:00)
--- NOTE | 2018-08-16 19:10 | NUR ---
GAVE PRN HYDRALAZINE. WILL CONTINUE TO MONITOR.. PATIENT SITTING AT SIDE OF BED
--- NOTE | 2018-08-16 19:26 | NUR ---
GAVE BEDSIDE REPORT TO GANG BORE OPERATOR NURSE. PATIENT ENDORSED IN STABLE CONDITION
--- NOTE | 2018-08-16 19:29 | NUR ---
RECEIVED BEDSIDE REPORT FROM DAY SHIFT RN. PATIENT IS A&OX4. ENGLISH SPEAKING MAINLY. NO S/S OF DISTRESS ON RA. PATIENT AMBULATES W ASSIST. CC GEN WEAKNESS. FALL AND SZ PROTOCOL IN PLACE. SKIN IS INTACT. VANESSA FISTULA. NO B/P OR VENIPUNCTURE ON L ARM SIGN POSTED. IV ON R HAND 20G SALINE LOCK. CLEAN DRY AND PATENT. PLAN OF CARE DISCUSSED. CALL LIGHT WITHIN REACH. WILL CONTINUE TO MONITOR.
[2018-08-16 20:00] VITALS: BP 143/74
[2018-08-16] MEDS: MIRTAZAPINE 15 MG TAB PO SCH (21:13)
[2018-08-16] MEDS: ATORVASTATIN 20 MG TAB PO SCH (21:14)
--- NOTE | 2018-08-16 21:17 | NUR ---
VITAL SIGNS WITHIN NORMAL LIMITS B/P 143/74 HR 68, DUE MEDICATIONS GIVEN. BLOOD SUGAR 169 INSULIN GIVEN PER PROTOCOL. CALL LIGHT WITHIN REACH
--- NOTE | 2018-08-16 23:45 | NUR ---
VS ARE WITHIN NORMAL LIMITS. PT DENIES ANY PAIN OR SOB. ALL NEEDS MET AT THIS TIME. WILL CONTINUE TO MONITOR.
[2018-08-17] VITALS: BP 143/72
--- NOTE | 2018-08-17 01:20 | NUR ---
PT SLEEPING COMFORTABLY IN BED. RESPIRATIONS ARE EQUAL AND UNLABORED. CALL LIGHT WITHIN REACH.
--- NOTE | 2018-08-17 03:11 | NUR ---
PT SLEEPING RESPIRATIONS ARE EQUAL AND UNLABORED. CALL LIGHT WITHIN REACH.
[2018-08-17 04:00] VITALS: BP 132/68
--- NOTE | 2018-08-17 04:30 | NUR ---
VITAL SIGNS ARE WITHIN NORMAL LIMITS. ALL NEEDS MET AT THIS TIME.
[2018-08-17] MEDS: BLOOD GLUCOSE MONITORING 1 DEV DEV FS SCH ×4 (05:59→21:01)
[2018-08-17] MEDS: LEVOTHYROXINE 0.1 MG TAB PO SCH (06:31)
[2018-08-17] MEDS: FAMOTIDINE 20 MG TAB PO SCH (06:31)
--- NOTE | 2018-08-17 06:31 | NUR ---
DUE MEDICATION GIVEN. BLOOD SUGAR 204 INSULIN GIVEN PER ORDERS. ALL NEEDS MET AT THIS TIME. WILL CONTINUE TO MONITOR.
[2018-08-17] MEDS: INSULIN LISPRO SLIDING SCALE 100 UNITS/ML VIAL SUBQ PRN ×3 (06:37→21:01)
[2018-08-17 06:59] LABS: BASOPHILS # (AUTO) 0.1 K/uL (0.00-0.22); BASOPHILS % (AUTO) 0.8 % (0.0-2.0); EOSINOPHILS # (AUTO) 0.5 K/uL (0-0.4); EOSINOPHILS % (AUTO) 8.4 % (0.0-4.0); HEMATOCRIT 35.9 % (36-52); HEMOGLOBIN 11.4 g/dL (12.0-18.0); LYMPHOCYTES # (AUTO) 1.4 K/uL (2.0-11.5); LYMPHOCYTES % (AUTO) 23.2 % (20.5-51.1); MEAN CORPUSCULAR HEMOGLOBIN 29 pg (27-31); MEAN CORPUSCULAR HGB CONC 32 g/dL (33-37); MEAN CORPUSCULAR VOLUME 90.4 fL (80-94); MONOCYTES # (AUTO) 0.3 K/uL (0.8-1.0); MONOCYTES % (AUTO) 5.6 % (1.7-9.3); NEUTROPHILS # (AUTO) 3.8 K/uL (1.8-7.7); PLATELET COUNT (AUTO) 140 K/uL (140-450); RED BLOOD CELL COUNT(AUTO) 3.97 MIL/uL (4.20-6.10); RED CELL DISTRIBUTION WIDTH 16.5 % (11.6-13.7); WHITE BLOOD COUNT (AUTO) 6.2 K/uL (4.8-10.8)
--- NOTE | 2018-08-17 07:25 | NUR ---
ENDORSED PT TO DAY SHIFT RN. PT IN STABLE CONDITION.
--- NOTE | 2018-08-17 07:30 | NUR ---
RECEIVED PT FROM FLORAL DEPARTMENT SPECIALIST NURSEARLEN, PT IS AWAKE AND SEATED ON THE BED, WITH SIDE RAILS UP AND CALL LIGHT WITHIN REACH, FALL PRECAUTION ENFORCED, PT HAS AN IV LINE ON THE RT HAND G. 22ON SALINE LOCK, INTACT. PT HAS A LEFT UA FISTULA FOR DIALYSIS AND IS SCHEDULED EVERY --TUE. PT DENIES PAIN AND NO SOB NOTED. WILL MONITOR PT.
[2018-08-17 07:49] LABS: ANION GAP 17.9 (8-16); CARBON DIOXIDE 26.8 mmol/L (21-32); POTASSIUM 5.7 mmol/L (3.5-5.1)
[2018-08-17 07:51] LABS: MAGNESIUM 1.8 mg/dL (1.8-2.4); PHOSPHORUS 6.4 mg/dL (2.5-4.9)
[2018-08-17 08:00] VITALS: BP 145/65
[2018-08-17 08:59] LABS: CREATININE 10.6 mg/dL (0.7-1.3)
[2018-08-17] MEDS: INSULIN LANTUS 100 UNITS/ML 10 ML VIAL SUBQ SCH (09:00)
[2018-08-17] MEDS: CARVEDILOL 12.5 MG TAB PO SCH ×2 (09:00→20:53)
--- NOTE | 2018-08-17 09:00 | NUR ---
RECEIVED REPORT FROM BRAEDEN OF LAB AN REPORTED THAT PT'S K LEVEL IS 5.7 AND CREATININE IS 10.6, ACKNOWLEDGED AND WILL INFORM .
[2018-08-17] MEDS: DOCUSATE SODIUM 100 MG GELCAP PO SCH ×2 (10:17→20:53)
[2018-08-17] MEDS: CALCIUM ACETATE 667 MG TAB PO SCH ×3 (10:17→17:15)
[2018-08-17] MEDS: levETIRAcetam 500 MG TAB PO SCH ×2 (10:17→20:53)
[2018-08-17] MEDS: SEVELAMER CARBONATE 800 MG TAB PO SCH ×3 (10:17→17:15)
[2018-08-17] MEDS: VIT-B COMP/VIT-C/FOLIC ACID 1 TAB PO SCH (10:18)
[2018-08-17] MEDS: ASPIRIN 81 MG TAB.CHEW PO SCH (10:18)
[2018-08-17] MEDS: MINOXIDIL 2.5 MG TAB PO SCH (10:18)
[2018-08-17] MEDS: GABAPENTIN 100 MG CAP PO SCH ×2 (10:19→20:52)
[2018-08-17] MEDS: amLODIPine 5 MG TAB PO SCH ×2 (10:19→20:53)
[2018-08-17] MEDS ORDERED: NITROGLYCERIN 0.4 MG TAB SL SCH (10:47)
[2018-08-17] MEDS ORDERED: SODIUM POLYSTYRENE 15 GM/60 ML UDBTL PO SCH (11:02)
[2018-08-17] MEDS ORDERED: CALCIUM GLUCONATE 10% 1,000 MG in NACL 0.9% 50 ML IV SCH (11:15)
[2018-08-17 12:00] VITALS: BP 143/74
--- NOTE | 2018-08-17 13:30 | NUR ---
DIALYSIS WAS STARTED TO PT NOW.
[2018-08-17 16:00] VITALS: BP 115/85
--- NOTE | 2018-08-17 16:20 | NUR ---
DANELLE FROM LAB CALLED AND REPORTED THAT PT IS POSITIVE FOR MRSA, ACKNOWLEDGED AND WILL INFORM .
--- NOTE | 2018-08-17 16:25 | NUR ---
INFORMED DR. RATLIFF THAT PT IS POSITIVE FOR MRSA, DR. RATLIFF SAID ALBERT SHE WILL PLACE AN ORDER.
--- NOTE | 2018-08-17 16:30 | NUR ---
DIALYSIS WAS FINISHED AND OUTPUT WAS 2,400. PT'S V/S IS STABLE AT THIS TIME.
[2018-08-17] MEDS: CHLORHEXADINE GLUC 2% CLOTH TP SCH (17:15)
[2018-08-17] MEDS: MUPIROCIN CA NASAL 2% 1GM TUBE NS SCH (17:15)
--- NOTE | 2018-08-17 17:18 | NUR ---
PT IS AWAKE AND VITAL SIGNS TAKEN AND IS WITHIN NORMAL LIMIT, BLOOD GLUCOSE CHECK DONE AND RESULT IS 154 AND INSULIN 2 UNITS WAS GIVEN ON THE RT UA,PT TOLERATED 5THE ORAL MEDICATIONS AND NO SIGN OF DISTRESS NOTED. WILL MONITOR PT.
--- NOTE | 2018-08-17 19:45 | NUR ---
ENDORSED PT TO CULINARY CHEF NURSEARLEN FOR CONTINUITY OF CARE, PT IS STABLE AT THIS TIME.
--- NOTE | 2018-08-17 19:46 | NUR ---
RECEIVED REPORT. PT IS AGITATED ATTEMPTING TO GET OUT OF BED. STATES THEY TOOK HIS BED AND WANTS IT BACK OR ELSE MEDICARE WILL CHARGE HIM AGAIN. PT IS A&OX2. KEEPS POINTING AT THE WALL STATES HE SEE HIS BED IS THERE BUT THERE'S IS NOTHING THERE. SAT PT ON CHAIR HAS WEAK GAIT. IV ON RIGHT HAND SALINE LOCK. PT HAS HD TODAY OUTPUT OF 2400. FISTULA ON LEFT UPPER ARM. VS ARE STABLE. BLOOD SUGAR LITTLE ELEVATED. CALLED CHARGE NURSE AND DOCTOR. PT ATTEMPTING TO BREAK THE HOSPITAL BED.
[2018-08-17 20:00] VITALS: BP 134/71
--- NOTE | 2018-08-17 20:00 | NUR ---
DOCTOR AND CHARGE NURSE AT BEDSIDE. SWITCH BED PT IS AGITATED WANTS HIS BED. EXPLAIN PT WE ONLY HAVE THE HOSPITAL BEDS. CALLED SECURITY PT DOES NOT WANT TO GO BACK ON BED.
--- NOTE | 2018-08-17 20:00 | NUR ---
UNABLE TO GET EKG STRIP AT THIS TIME. ATTEMPTING TO CALM PT DOWN.
[2018-08-17] MEDS: LORazepam 2 MG/ML VIAL IM/IVP PRN (20:50)
--- NOTE | 2018-08-17 20:53 | NUR ---
HUMAN FACTORS ERGONOMIST CAME AND ASKED PT TO GET INTO BED. PT LISTENED TO HIM WITHOUT QUESTIONS. THEY DID SMALL TALK. WAS ABLE TO GIVE DUE MEDICATIONS AND ATIVAN. REAPPLIED TELE MONITOR. PT SEEMS MORE CALM.SAFETY MEASURES ARE IN PLACE. WILL CONTINUE TO MONITOR.
[2018-08-17] MEDS: ATORVASTATIN 20 MG TAB PO SCH (20:54)
[2018-08-17] MEDS: MIRTAZAPINE 15 MG TAB PO SCH (20:54)
--- NOTE | 2018-08-17 22:02 | NUR ---
PT LAYING IN BED. NO S/S OF DISTRESS NOTED.
--- NOTE | 2018-08-17 22:50 | NUR ---
CALLED SECURITY PT IS ATTEMPTING TO GET OUT OF ROOM AND IS OUT OF BED.
--- NOTE | 2018-08-17 23:02 | NUR ---
PT BACK IN BED. STILL AGITATED REQUESTING HIS BED. EXPLAIN TO PT THESE ARE THE ONLY HOSPITAL BED WE HAVE. HE WILL GET HIS BED WHEN D/C/ ADMINISTERED AMBIEN. SAFETY MEASURES ARE IN PLACE. WILL CONTINUE TO MONITOR.
[2018-08-18] VITALS: BP 152/73
[2018-08-18] MEDS: LORazepam 2 MG/ML VIAL IM/IVP PRN ×2 (01:27→10:05)
--- NOTE | 2018-08-18 01:27 | NUR ---
OPERATIONS PLANT ATTENDANT CALLED ME. PT IS AGITATED HITTING THE BED. ATTEMPTED TO CALM PT DOWN ADMINISTERED ATIVAN. ALL SAFETY MEASURES ARE IN PLACE. CALL LIGHT IS WITHIN REACH.
[2018-08-18 04:00] VITALS: BP 155/77
--- NOTE | 2018-08-18 05:40 | NUR ---
PT REFUSED BLOOD DRAW AND BLOOD SUGAR CHECKED. MADE AWARE. WILL CONTINUE TO FOLLOW UP
[2018-08-18] MEDS: BLOOD GLUCOSE MONITORING 1 DEV DEV FS SCH ×4 (05:45→20:32)
[2018-08-18] MEDS: LEVOTHYROXINE 0.1 MG TAB PO SCH (06:30)
--- NOTE | 2018-08-18 06:30 | NUR ---
PT REFUSING MEDS. EDUCATED PT ON BENEFITS AND ADVERSE EFFECTS OF NOT TAKING MEDS. VERBALIZED UNDERSTANDING.
[2018-08-18] MEDS: FAMOTIDINE 20 MG TAB PO SCH (06:45)
--- NOTE | 2018-08-18 07:20 | NUR ---
GAVE BEDSIDE REPORT. PT IN STABLE CONDITION. REPOSITION PT IN BED. BED ALARM ON AND LOWEST POSITION.
--- NOTE | 2018-08-18 07:21 | NUR ---
RECEIVED REPORT FROM CINDER DUMP CRANE OPERATOR NURSE. PT IN STABLE CONDITION. RESPIRATIONS EVEN AND UNLABORED. IV INTACT AND PATENT. SAFETY MEASURES IN PLACE. CALL LIGHT AT BEDSIDE. BED IN LOW POSITION. WILL CONTINUE TO MONITOR.
--- NOTE | 2018-08-18 07:55 | NUR ---
Late entry. Confirmed with the RN that 1000 ml 0.9NS IV bolus completed at 1615.
[2018-08-18 08:00] VITALS: BP 122/80
[2018-08-18] MEDS: SEVELAMER CARBONATE 800 MG TAB PO SCH ×3 (08:00→17:31)
--- NOTE | 2018-08-18 08:43 | NUR ---
LEAVING OFF UNIT FOR HEAD CT AT THIS TIME. PT IN STABLE CONDITION.
[2018-08-18] MEDS: VIT-B COMP/VIT-C/FOLIC ACID 1 TAB PO SCH (09:00)
[2018-08-18] MEDS: ASPIRIN 81 MG TAB.CHEW PO SCH (09:00)
[2018-08-18] MEDS: levETIRAcetam 500 MG TAB PO SCH ×3 (09:00→21:00)
[2018-08-18] MEDS: CALCIUM ACETATE 667 MG TAB PO SCH ×3 (09:00→17:31)
[2018-08-18] MEDS: DOCUSATE SODIUM 100 MG GELCAP PO SCH ×4 (09:00→23:24)
[2018-08-18] MEDS: amLODIPine 5 MG TAB PO SCH ×3 (09:00→21:00)
[2018-08-18] MEDS: CARVEDILOL 12.5 MG TAB PO SCH ×3 (09:00→23:23)
[2018-08-18] MEDS: GABAPENTIN 100 MG CAP PO SCH ×3 (09:00→21:00)
[2018-08-18] MEDS: MINOXIDIL 2.5 MG TAB PO SCH (09:00)
--- NOTE | 2018-08-18 09:04 | NUR ---
PT BACK ON UNIT FROM CT SCAN. PT IN STABLE CONDITION. WILL CONTINUE TO MONITOR.
--- NOTE | 2018-08-18 09:30 | NUR ---
PT COMBATIVE AND ATTEMPTING TO GET OUT OF BED AT THIS TIME. PT PUNCHING AND KICKING TOWARD NURSING STAFF. MOVING PT CLOSER TO NURSING STATION. TRANSFERRED FROM 117 TO 109A AT THIS TIME.
--- NOTE | 2018-08-18 10:24 | NUR ---
LAB AT BEDSIDE AT THIS TIME.
[2018-08-18 10:42] LABS: BASOPHILS # (AUTO) 0.1 K/uL (0.00-0.22); BASOPHILS % (AUTO) 0.6 % (0.0-2.0); EOSINOPHILS # (AUTO) 0.4 K/uL (0-0.4); EOSINOPHILS % (AUTO) 5.5 % (0.0-4.0); HEMATOCRIT 34.7 % (36-52); HEMOGLOBIN 10.9 g/dL (12.0-18.0); LYMPHOCYTES # (AUTO) 1.9 K/uL (2.0-11.5); LYMPHOCYTES % (AUTO) 23.6 % (20.5-51.1); MEAN CORPUSCULAR HEMOGLOBIN 29 pg (27-31); MEAN CORPUSCULAR HGB CONC 32 g/dL (33-37); MEAN CORPUSCULAR VOLUME 90.5 fL (80-94); MONOCYTES # (AUTO) 0.5 K/uL (0.8-1.0); MONOCYTES % (AUTO) 6.8 % (1.7-9.3); NEUTROPHILS # (AUTO) 5.1 K/uL (1.8-7.7); NEUTROPHILS % (AUTO) 63.5 % (42.2-75.2); PLATELET COUNT (AUTO) 134 K/uL (140-450); RED BLOOD CELL COUNT(AUTO) 3.83 MIL/uL (4.20-6.10); RED CELL DISTRIBUTION WIDTH 16.3 % (11.6-13.7)
[2018-08-18 10:46] LABS: ANION GAP 12.6 (8-16); CARBON DIOXIDE 32.8 mmol/L (21-32); POTASSIUM 4.4 mmol/L (3.5-5.1)
[2018-08-18 10:49] LABS: CREATININE 8.9 mg/dL (0.7-1.3)
[2018-08-18 10:58] LABS: MAGNESIUM 1.8 mg/dL (1.8-2.4); PHOSPHORUS 5.2 mg/dL (2.5-4.9)
[2018-08-18] MEDS: INSULIN LANTUS 100 UNITS/ML 10 ML VIAL SUBQ SCH (11:27)
[2018-08-18 12:00] VITALS: BP 120/81
--- NOTE | 2018-08-18 12:15 | NUR ---
SPOKE WITH KELSEA AT [facility], NO FAMILY FOR THIS PATIENT. I CALLED KATARINA AT [facility] ABOUT SNF FOR P.T. SHE SAID SHE WOULD FAX ME A LIST OF CONTRACTED FACILITIES.
--- NOTE | 2018-08-18 14:34 | NUR ---
CALLED KATARINA. SHE TOLD ME TO TRY [facility]. I CALLED [facility] AND SPOKE WITH SARAHI. FAXED INQUIRE TO HER AT [phone] PHONE [phone]
[2018-08-18] MEDS ORDERED: LORazepam 2 MG/ML VIAL IM/IVP PRN (14:55)
[2018-08-18] MEDS ORDERED: OLANZapine 2.5 MG TAB PO SCH (15:00)
--- NOTE | 2018-08-18 15:44 | NUR ---
RECEIVED A CALL FROM SARAHI FROM [facility]. THEY CAN TAKE THE PATIENT TOMORROW. PATIENT TO GO TO ROOM 40B UNDER DR. YORK. THEY WILL ARRANGE FOR TRANSPORT TO THE DIALYSIS CENTER ON DATE DUE. FOR TRANSPORT USE POLICY NUMBER FOR THIS ADMIT, [id number] ON FACE SHEET. DR. RATLIFF AWARE. SANDI SANCHEZPHLEBOTOMY LAB ASSISTANT NURSE AWARE.
[2018-08-18 16:00] VITALS: BP 122/80
--- NOTE | 2018-08-18 16:30 | NUR ---
WRIST RESTRAINTS REMOVED AT THIS TIME. WILL CONTINUE TO MONITOR.
--- NOTE | 2018-08-18 17:24 | NUR ---
ASSISTED IN REPOSITIONING AND CHANGING. WILL CONTINUE TO MONITOR.
[2018-08-18] MEDS: MUPIROCIN CA NASAL 2% 1GM TUBE NS SCH (17:32)
[2018-08-18] MEDS: CHLORHEXADINE GLUC 2% CLOTH TP SCH (17:33)
--- NOTE | 2018-08-18 18:32 | NUR ---
PT IS STABLE AT THIS TIME WILL ENDORSE TO PHOTO LAB SPECIALIST NURSE FOR CONTINUITY OF CARE.
--- NOTE | 2018-08-18 19:30 | NUR ---
RECEIVED REPORT FROM DAYSHIFT NURSE AT BEDSIDE FOR CONTINUITY OF CARE. PT AAOX1. PT IV NOTED R HAND 22G SALINE LOCK. NO SO NO S/S OF DISTRESS ON RA. PT IS CONTACT PRECAUTION MRSA NARES. PT IS ON SEIZURE PRECAUTIONS AND IS CONFUSED. BED LOWERED BED ALARM PLACED WILL CONTINUE TO MONITOR.
[2018-08-18 20:00] VITALS: BP 184/91
[2018-08-18] MEDS: ATORVASTATIN 20 MG TAB PO SCH ×2 (20:31→21:00)
[2018-08-18] MEDS: MIRTAZAPINE 15 MG TAB PO SCH ×2 (20:31→21:00)
[2018-08-18] MEDS: OLANZapine 2.5 MG TAB PO SCH ×2 (20:32→21:00)
[2018-08-19] VITALS: BP 149/92
--- NOTE | 2018-08-19 02:56 | NUR ---
PT SLEEPING NO SOB NO S/S OF DISTRESS ON RA. WILL CONTINUE TO MONITOR.
[2018-08-19 04:00] VITALS: BP 135/69
[2018-08-19] MEDS: BLOOD GLUCOSE MONITORING 1 DEV DEV FS SCH ×2 (05:56→11:30)
--- NOTE | 2018-08-19 05:56 | NUR ---
PT BG IS 72. WOKE UP PT TO DRINK OJ. AND PT REFUSED AT THIS TIME HE SAID HE WILL DRINK IT LATER. AM NURSE PLEASE MAKE SURE GIVE OJ
--- NOTE | 2018-08-19 06:21 | NUR ---
MD RESIDENT AWARE OF BG 72. NO NEED FOR D50. WILL CONTINUE TO TRY TO GIVE OJ. ALSO TRY TO GIVE MEDS LATER TO SEE IF HE WANTS IT.
[2018-08-19] MEDS: LEVOTHYROXINE 0.1 MG TAB PO SCH (06:30)
[2018-08-19] MEDS: FAMOTIDINE 20 MG TAB PO SCH (07:09)
--- NOTE | 2018-08-19 07:09 | NUR ---
ENDORSED REPORT TO DAYSHIFT NURSE AT BEDSIDE FOR CONTINUITY OF CARE.
[2018-08-19 07:14] LABS: BASOPHILS # (AUTO) 0.1 K/uL (0.00-0.22); BASOPHILS % (AUTO) 0.9 % (0.0-2.0); EOSINOPHILS # (AUTO) 0.4 K/uL (0-0.4); EOSINOPHILS % (AUTO) 7.7 % (0.0-4.0); HEMATOCRIT 36.8 % (36-52); HEMOGLOBIN 11.5 g/dL (12.0-18.0); LYMPHOCYTES # (AUTO) 1.2 K/uL (2.0-11.5); LYMPHOCYTES % (AUTO) 19.9 % (20.5-51.1); MEAN CORPUSCULAR HEMOGLOBIN 29 pg (27-31); MEAN CORPUSCULAR HGB CONC 31 g/dL (33-37); MEAN CORPUSCULAR VOLUME 90.9 fL (80-94); MONOCYTES # (AUTO) 0.4 K/uL (0.8-1.0); MONOCYTES % (AUTO) 6.7 % (1.7-9.3); NEUTROPHILS # (AUTO) 3.8 K/uL (1.8-7.7); NEUTROPHILS % (AUTO) 64.8 % (42.2-75.2); PLATELET COUNT (AUTO) 125 K/uL (140-450); RED BLOOD CELL COUNT(AUTO) 4.05 MIL/uL (4.20-6.10); RED CELL DISTRIBUTION WIDTH 16.6 % (11.6-13.7); WHITE BLOOD COUNT (AUTO) 5.8 K/uL (4.8-10.8)
--- NOTE | 2018-08-19 07:16 | NUR ---
RECEIVED BEDSIDE REPORT FROM CROP OR LIVESTOCK TENANT FARMER RN. PT AAOX1, SLEEPING IN BED, AROUSABLE BY TOUCH. ABLE TO FOLLOW SIMPLE COMMANDS. NO C/O PAIN OR DISCOMFORT. NO S/S DISTRESS. RESPIRATIONS EVEN AND UNLABORED. SKIN INTACT. PER CROP OR LIVESTOCK TENANT FARMER, PT IS INCONTINENT AND NON-AMBULATORY. LT FA SHUNT. PT TO RECEIVE HD TODAY. ON CONTACT PRECAUTIONS FOR MRSA NARES. SEIZURE AND ASPIRATION PRECAUTIONS IN PLACE. IV SITE PATENT AND ASYMPTOMATIC, ON SL. ALL OTHER SAFETY PRECAUTIONS IN PLACE, WILL CONTINUE TO MONITOR.
--- NOTE | 2018-08-19 07:49 | NUR ---
PER BEER RUNNER RN, PT TO RECEIVE HD TODAY. HD RN IS HERE AT BEDSIDE. NO ORDERS FOR HD FOR TODAY LOCATED. PAGED DR. GUERRERO.
[2018-08-19 07:54] LABS: PHOSPHORUS 7.1 mg/dL (2.5-4.9)
[2018-08-19 07:55] LABS: CARBON DIOXIDE 30.3 mmol/L (21-32); POTASSIUM 4.3 mmol/L (3.5-5.1)
[2018-08-19 08:00] VITALS: BP 109/61
[2018-08-19] MEDS: SEVELAMER CARBONATE 800 MG TAB PO SCH ×2 (08:00→12:45)
[2018-08-19 08:01] LABS: CREATININE 10.5 mg/dL (0.7-1.3)
[2018-08-19] MEDS: ASPIRIN 81 MG TAB.CHEW PO SCH ×2 (08:47→09:22)
[2018-08-19] MEDS: DOCUSATE SODIUM 100 MG GELCAP PO SCH ×2 (08:48→09:22)
[2018-08-19] MEDS: CARVEDILOL 12.5 MG TAB PO SCH (08:48)
[2018-08-19] MEDS: MINOXIDIL 2.5 MG TAB PO SCH (08:48)
[2018-08-19] MEDS: levETIRAcetam 500 MG TAB PO SCH (08:48)
[2018-08-19] MEDS: VIT-B COMP/VIT-C/FOLIC ACID 1 TAB PO SCH ×2 (08:49→09:22)
[2018-08-19] MEDS: GABAPENTIN 100 MG CAP PO SCH ×2 (08:49→09:22)
[2018-08-19] MEDS: amLODIPine 5 MG TAB PO SCH (08:50)
[2018-08-19] MEDS: OLANZapine 2.5 MG TAB PO SCH ×2 (08:50→09:22)
[2018-08-19] MEDS: CALCIUM ACETATE 667 MG TAB PO SCH ×3 (08:50→12:45)
[2018-08-19] MEDS: INSULIN LANTUS 100 UNITS/ML 10 ML VIAL SUBQ SCH (08:51)
--- NOTE | 2018-08-19 08:54 | NUR ---
NOTIFIED DR. ENCARNACION THAT PT HAS REFUSED ALL 0800 AND 0900 MEDICATIONS. ASKED TO CHANGE KEPPRA TO IV. DR. ENCARNACION TO PLACE ORDERS.
[2018-08-19] MEDS ORDERED: levETIRAcetam 500 MG in NACL 0.9% 100 ML IV SCH (09:00)
--- NOTE | 2018-08-19 11:49 | NUR ---
DR. ENCARNACION MADE AWARE OF TROPONIN 0.070.
[2018-08-19 12:00] VITALS: BP 140/66
[2018-08-19] MEDS: INSULIN LISPRO SLIDING SCALE 100 UNITS/ML VIAL SUBQ PRN (13:00)
--- NOTE | 2018-08-19 14:45 | NUR ---
BEEN ON HOLD FOR [facility] FOR ALMOST 20 MINUTES. WILL HANG UP AND TRY CALLING AGAIN LATER FOR REPORT.
--- NOTE | 2018-08-19 15:01 | NUR ---
CALLED [facility] AGAIN TO GIVE REPORT. PER [facility], THEY HAVE TO CHECK WITH [facility] FIRST AND CALL ME BACK.
--- NOTE | 2018-08-19 15:06 | NUR ---
PER [facility], THEY WILL BE 45-60 MINUTES LATER FOR SOCIAL MEDIA CONTENT MANAGER.
--- NOTE | 2018-08-19 15:33 | NUR ---
ENDORSED POC TO ABDULAZIZ RN AT [facility]. REVIEWED PT CC, DX, PHX, LABS, VITALS, PLAN OF CARE. INFORMED ABDULAZIZ RN OF HD TODAY WITH 2.3 L REMOVED. VITALS STABLE. LEFT CALLBACK NUMBER.
--- NOTE | 2018-08-19 16:30 | NUR ---
LEFT MESSAGE FOR PERSON TO NOTIFY DENISHA IN REGARDS TO PT BEING TRANSFERRED TO [facility] FOR PHYSICAL THERAPY AND CONTINUED DIALYSIS. DISCHARGE TEACHING LEFT FOR DENISHA AND CALL NUMBER IF ANY QUESTIONS. PT IS AOX1-2 AND UNABLE TO COMPREHEND D/C TEACHING.
--- NOTE | 2018-08-19 16:50 | NUR ---
DISCHARGE PAPERWORK GIVEN TO PT. PT REFUSED PNEUMONIA VACCINE. UNABLE TO COMPREHEND VACCINATION DECLINATION TEACHING AT THIS TIME DUE TO MENTAL STATUS. LEFT MESSAGE FOR PERSON TO NOTIFY DENISHA WITH D/C TEACHING INSTRUCTIONS. ID BANDS REMOVED. IV SITE REMOVED WITH MINIMAL BLOOD LOSS AND LUMEN COMPLETELY INTACT. ALL PERSONAL BELONGINGS ARE WITH PATIENT. [facility] HERE TO TRANSFER PT TO [facility].
== END 2018-08-19 16:50 | DRG 682 ==
LOC: MED 13:05 → MTU 17:41
PROVIDERS: ADMIT General Practice; ATTEND General Practice
PROC: 5A1D70Z Performance of Urinary Filtration, Intermittent, Less than 6 Hours Per Day (ICD-10-PCS; principal; 2018-08-15)
PROC: 5A1D70Z Performance of Urinary Filtration, Intermittent, Less than 6 Hours Per Day (ICD-10-PCS; 2018-08-17)
PROC: 5A1D70Z Performance of Urinary Filtration, Intermittent, Less than 6 Hours Per Day (ICD-10-PCS; 2018-08-19)
DX: N17.0 Acute kidney failure with tubular necrosis (principal); G93.41 Metabolic encephalopathy; I42.2 Other hypertrophic cardiomyopathy; I13.11 Hypertensive heart and chronic kidney disease without heart failure, with stage 5 chronic kidney disease, or end stage renal disease; E44.1 Mild protein-calorie malnutrition; E87.5 Hyperkalemia; N18.6 End stage renal disease; E11.22 Type 2 diabetes mellitus with diabetic chronic kidney disease; E83.39 Other disorders of phosphorus metabolism; M94.0 Chondrocostal junction syndrome [Tietze]; E78.5 Hyperlipidemia, unspecified; E03.9 Hypothyroidism, unspecified; F32.9 Major depressive disorder, single episode, unspecified; K21.9 Gastro-esophageal reflux disease without esophagitis; K59.09 Other constipation; E11.42 Type 2 diabetes mellitus with diabetic polyneuropathy; D63.1 Anemia in chronic kidney disease; R00.1 Bradycardia, unspecified; M47.814 Spondylosis without myelopathy or radiculopathy, thoracic region; Z99.2 Dependence on renal dialysis; Z79.4 Long term (current) use of insulin; Z79.84 Long term (current) use of oral hypoglycemic drugs; Z79.899 Other long term (current) drug therapy; Z86.73 Personal history of transient ischemic attack (TIA), and cerebral infarction without residual deficits
CPT/HCPCS: 36415; 70450; 71045; 80048; 80053; 82140; 82150; 82948; 83036; 83605; 83690; 83735; 83880; 84100; 84134; 84439; 84443; 84484; 85025; 85610; 85730; 87040; 87081; 90935; 93005; 94640; 94644; 96361; 96372; 96374; 96375; 97110; 97530; 99285; J0360; J0610; J1815; J1953; J2060; J7030; J7613; Q0092